=== PATIENT | female | born 1975 | race Caucasian/White ===

== ENCOUNTER 2024-02-04 05:22 | Emergency (ER) | payer MEDICAID, SELFPAY ==
[2024-02-04] VITALS (7 sets, daily range): BP systolic 109–135; BP diastolic 85–94; PULSE 90–116; RESP 16–23; TEMP 36.7; O2SAT 87–93; BMI 28.5
--- NOTE | 2024-02-04 05:42 | PD.EDRME ---
Rapid Medical Screening Exam RME Arrival date/time: 02/04/24 05:22 Chief Complaint: Shortness of Breath/Dyspnea Time Seen by Provider: 02/04/24 05:42 Vital signs: Vital Signs Temperature 98.1 F 02/04/24 05:29 Pulse Rate 116 H 02/04/24 05:29 Respiratory Rate 23 H 02/04/24 05:29 Blood Pressure 117/85 H 02/04/24 05:29 Pulse Oximetry (%) 87 L 02/04/24 05:29 Oxygen Delivery Method Room Air 02/04/24 05:29 RME Narrative: 48-year-old female coming in with COPD exacerbation and inhalers at home coming in with wheezing after change in weather. Patient was given DuoNebs en route by EMS and feels significantly better. No chest pain
--- NOTE | 2024-02-04 07:54 | XR_ITS ---
Examination: AP chest single view TECHNIQUE: AP portable upright chest single view Exam date and time: January 27, 2024 0802 hours Comparison June 18, 2023 INDICATIONS: Chest pain today FINDINGS: Normal heart size. Lungs are clear. Left subclavian Port-A-Cath tip satisfactory position IMPRESSION: No pneumonia or pulmonary edema
[2024-02-04] MEDS: METOCLOPRAMIDE INJ 5 MG/ML VIAL 2 ML 10 MG IVP (08:16)
[2024-02-04] MEDS: MORPHINE SULF INJ 10 MG/ML VIAL 5 MG IVP (08:17)
--- NOTE | 2024-02-04 08:21 | EDNOTE_ITS ---
ED SOB =RME/HPI General Chief Complaint: Shortness of Breath/Dyspnea Stated Complaint: SOB Time Seen by Provider: 02/04/24 05:42 Arrival date/time: 02/04/24 05:22 RME / HPI RME / HPI Narrative: 48-year-old female coming in with COPD exacerbation and inhalers at home coming in with wheezing after change in weather. Patient was given DuoNebs en route by EMS and feels significantly better. No chest pain DR HUGHES MAIN ED EVALUATION: 48-year-old female patient, current everyday smoker, complaining of shortness of breath, sweats, body aches. States yesterday began a second antibiotic for cellulitis of the abdominal wall. Related Data Home Medications ?Medication ?Instructions ?Recorded ?Confirmed atorvastatin 10 mg tablet 10 mg PO HS 01/20/19 08/13/23 levothyroxine 75 mcg tablet 50 mcg PO QMORNING 01/20/19 08/13/23 methocarbamol 750 mg tablet 750 mg PO BID 01/20/19 08/13/23 pantoprazole 40 mg tablet,delayed 40 mg PO QDAY 01/20/19 08/13/23 release folic acid 1 mg tablet 1 mg PO HS 12/19/19 08/13/23 lorazepam 1 mg tablet 1 mg PO Q8H PRN Anxiety 12/19/19 08/13/23 acetaminophen 300 mg-codeine 60 mg 0.5 tab PO Q6H PRN Pain 08/12/20 08/13/23 tablet metoprolol tartrate 50 mg tablet 100 mg PO BID 11/03/20 08/14/23 prednisone 1 mg tablet 5 mg PO BID PRN Arthritis 03/21/21 08/13/23 leflunomide 20 mg tablet 20 mg PO QDAY 05/10/22 08/13/23 fenofibrate 54 mg tablet 54 mg PO QDAY 10/25/22 08/13/23 cetirizine 10 mg tablet 10 mg PO QDAY 11/13/22 08/13/23 hydrocodone bitartrate 10 mg 10 mg PO Q12H 11/13/22 08/13/23 capsule, oral only, extended rel 12 hr quetiapine 300 mg tablet 300 mg PO BID 11/13/22 08/13/23 duloxetine 30 mg capsule,delayed 30 mg PO QPM 12/18/22 08/13/23 release (Cymbalta) duloxetine 60 mg capsule,delayed 60 mg PO QAM 12/18/22 08/13/23 release (Cymbalta) promethazine 25 mg tablet 25 mg PO BID 12/18/22 08/13/23 tocilizumab 200 mg/10 mL (20 1 mg IV QMONTH 12/18/22 08/13/23 mg/mL) intravenous solution benzonatate 100 mg capsule 100 mg PO TID 05/25/23 08/13/23 fezolinetant 45 mg tablet (Veozah) 45 mg PO QDAY 05/25/23 08/13/23 amoxicillin 500 mg capsule 500 mg PO Q8H 08/13/23 08/13/23 Previous Rx's ?Medication ?Instructions ?Recorded oxycodone-acetaminophen 5 mg-325 1 tab PO Q8H PRN pain #7 tabs 02/17/23 mg tablet (Percocet) dexamethasone 6 mg tablet 6 mg PO QDAY #10 tabs 02/21/23 cyclobenzaprine 10 mg tablet 10 mg PO HS #10 tabs 06/18/23 meloxicam 7.5 mg tablet 7.5 mg PO QDAY #10 tabs 06/18/23 Allergies Allergy/AdvReac Type Severity Reaction Status Date / Time infliximab [From Remicade] Allergy Severe Difficulty Verified 08/14/23 07:09 Breathing ondansetron AdvReac Severe SEVERE Verified 08/14/23 07:09 MIGRAINE tramadol AdvReac Severe ALTERS Verified 08/14/23 07:09 MOOD, CAUSES ANGER AND IRRITATION Review of Systems Review of Systems Narrative Review of Systems: Gen:+sweating. body ache. No fever, no chills, no weight loss EYES: No discharge, no visual changes, no pain HEENT: No ear pain, no congestion, no sore throat PULM: + shortness of breath, no cough, no congestion CV: No chest pain, no dyspnea on exertion, no palpitations GI: No nausea, no vomiting, no diarrhea, no pain, no constipation : No frequency, no urgency, no dysuria Musc/skel: No joint pain, no back pain Skin: No rash Psyc: No hallucinations, no depression Heme/Lymph: No easy bleeding or bruising tendencies Neuro: No weakness, no headache Past Medical History Past Medical History NEUROLOGIC: Positive Neurological Disorders and Migraine; Negative Seizures CARDIAC: Positive Cardiac Disorders, Cardiac Arrhythmia, Hypercholesterolemia, Edema and Hypertension; Negative Angina, Congestive Heart Failure, Cellulitis or Varicose Veins RESPIRATORY: Positive Chronic Obstructive Pulmonary Disease (COPD), Asthma, Bronchitis, Pneumonia, Cough and Tobacco Use; Negative Tuberculosis or Sleep Apnea GASTROINTESTINAL: Positive Gastrointestinal Disorders, Pancreatitis, Ulcer, Irritable Bowel, Hiatal Hernia, Gastroesophageal Reflux Disease and Obesity; Negative Hepatitis or Gall Bladder Disease GENITOURINARY: Positive Genitourinary Disorders; Negative Renal Disease REPRODUCTIVE: Positive Previous Pregnancies; Negative Breast Cancer or Pelvic Inflammatory Disease MUSCULOSKELETAL: Positive Musculoskeletal Disorders, Arthritis, Rheumatoid Arthritis, Scoliosis, Carpal Tunnel Syndrome, Fibromyalgia and Fractures ENDOCRINE: Positive Endocrine Disorders, Diabetes Mellitus Type 2, Hyperthyroidism, Hypothyroidism and Systemic Lupus Erythematosus; Negative Diabetes Mellitus Type 1 HEMATOLOGIC: Negative Blood Disorders or Sickle Cell Disease PSYCHO/SOCIAL: Positive Depression, Anxiety and Post Traumatic Stress Disorder; Negative Depression OTHER HISTORY: Positive Hospitalization, Autoimmune Disease, Falls and Chicken Pox; Negative Down Syndrome, Developmental Delay, Shingles, Blood Transfusions, Blood Transfusion Reaction, Anesthesia Reactions, Chemotherapy, Radiation Therapy, MRSA, Measles, Mumps, Cancer or Breast Cancer Family History FAMILY HISTORY: Positive Family Psychiatric Problems, Family Respiratory Disorders, Family Cardiac Disorders, Family Cancer and Family Surgery; Negative Family Gastrointestinal Problems or Family Anesthesia Reaction Surgical History SURGICAL: Positive Thyroidectomy (breach), Nose Surgery (septum), Tonsillectomy, Abdominal Surgery, Bowel Surgery, Lumpectomy (right), Hysterectomy and Tubal Lig ation; Negative Cardiac Surgery, Pacemaker or Angiogram Social History SMOKING STATUS: Current some day smoker SECOND HAND EXPOSURE: Yes SUBSTANCE USE: does not use ED Exam Narrative Physical exam: GENERAL APPEARANCE: alert and oriented x 4, well-developed, well-nourished, no acute distress HEENT: Normocephalic, atraumatic; pupils equal, round, reactive to light; EOMI; mucous membranes pink, moist; oropharynx clear NECK: Supple LUNGS: coarse upper airway noise on osculations of chest, good air movement. HEART: Regular rate, regular rhythm; normal S1, S2; no murmurs ABDOMEN: non distended; normal BS; soft, no tenderness, no guarding, no rebound; no masses, no organomegaly, no hernia BACK: no CVA tenderness EXTREMITIES: atraumatic; no edema NEUROLOGIC: awake; alert and oriented x4; cranial nerves II-XII grossly intact; no focal sensory or motor deficits PSYCHIATRIC: appropriate mood and affect SKIN: warm, dry, normal color; no rashes Course Quality Measures none Orders Category Date Time Status Bedside COVID-19 Antigen Test NOW Care 02/04/24 07:54 Completed Bedside Influenza A&B Antigen Test NOW Care 02/04/24 07:54 Completed 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 NOW Care 02/04/24 07:54 Completed EKG (ED ONLY) *Do not use* NOW Care 02/04/24 07:54 Completed EKG (ED Only) Stat Exams 02/04/24 07:54 Ordered XR chest 1V portable Stat Exams 02/04/24 07:54 Completed B-Type Natriuretic Peptide Stat Lab 02/04/24 08:24 Completed Blood Culture (Lab) Stat Lab 02/04/24 08:43 Received CBC Stat Lab 02/04/24 08:24 Completed Comprehensive Metabolic Panel Stat Lab 02/04/24 08:24 Completed Lactate (Lactic Acid) Stat Lab 02/04/24 08:24 Completed Lactic Acid, 3 HR Stat Lab 02/04/24 11:49 Completed Lipase Stat Lab 02/04/24 08:24 Completed Magnesium Stat Lab 02/04/24 08:24 Completed Partial Thromboplastin Time Stat Lab 02/04/24 08:24 Completed Procalcitonin Stat Lab 02/04/24 08:24 Completed Prothrombin Time with INR Stat Lab 02/04/24 08:24 Completed Troponin I Stat Lab 02/04/24 08:24 Completed Urinalysis Stat Lab 02/04/24 08:30 Completed Urine Culture Stat Lab 02/04/24 08:30 Received HYDROcodone*/APAP 5/325 [[place] 5/325] Med 02/04/24 13:06 Discontinued 1 tab PO X1 ONE Ketorolac Inj [Toradol Inj] Med 02/04/24 11:40 Discontinued 15 mg IVP X1 ONE Metoclopramide Inj [Reglan Inj] Med 02/04/24 07:54 Discontinued 10 mg IVP X1 ONE Morphine Inj Med 02/04/24 07:54 Discontinued 5 mg IVP X1 ONE Promethazine Inj [Phenergan Inj] 12.5 mg Med 02/04/24 11:41 Discontinued Sodium Chloride 0.9% [Ns] 50 ml IV Q6HR Sodium Chloride 0.9% 1000 ml [Ns] 1,000 ml Med 02/04/24 10:43 Discontinued IV 999 mls/hr Sodium Chloride 0.9% 1000 ml [Ns] 1,000 ml Med 02/04/24 10:43 Discontinued IV 999 mls/hr Vital Signs Vital signs: Vital Signs Temperature 98.1 F 02/04/24 05:29 Pulse Rate 116 H 02/04/24 05:29 Respiratory Rate 23 H 02/04/24 05:29 Blood Pressure 117/85 H 02/04/24 05:29 Pulse Oximetry (%) 87 L 02/04/24 05:29 Oxygen Delivery Method Room Air 02/04/24 05:29 Shortness of Breath / Dyspnea MDM Narrative MDM Narrative:: Past medical, family and social history reviewed and verified by me. The quality assurance monitor chassis revealed normal sinus rhythm as interpreted by me. The quality assurance monitor chassis was ordered secondary to the patient's shortness of breath and is monitoring for arrhythmia. Chest xray 1-view portable AP interpreted by me: no evidence of infiltrate, cardiomegaly, pleural effusion or bone fracture. The aorta appears to be of normal size and contour and the mediastinum is within the normal limits of size. Patient data External records reviewed:: [facility] previous records Clinical information provided by:: patient Social determinants that could affect healthcare access:: none Patient has the following chronic illnesses:: hypertension, diabetes How is presenting disease/condition affected by chronic disease/condition?: uneffected by Evaluation data The following diagnostics were reviewed and interpreted by me:: lab results, radiology exam(s) and EKG tracing(s) (Sinus tachycardia, Rate 108, normal axis, normal ST and T waves, no acute ischemic changes. ) Lab and/or radiology exams considered but not ordered:: none Interpretation Summary: Ordering Physician: Rosemarie Hughes MD Date of Service: 02/04/24 Procedure(s): XR chest 1V portable Accession Number(s): [id number] cc: Michelle Malcolm; Malcolm Tirado MD; Rosemarie Hughes MD~ Examination: AP chest single view TECHNIQUE: AP portable upright chest single view Exam date and time: January 27, 2024 0802 hours Comparison June 18, 2023 INDICATIONS: Chest pain today FINDINGS: Normal heart size. Lungs are clear. Left subclavian Port-A-Cath tip satisfactory position IMPRESSION: No pneumonia or pulmonary edema Dictated By: Malcolm Tirado MD Signed By: <Electronically signed by Malcolm Tirado MD in OV> 02/04/24 0932 Medications / Prescriptions Medications or Prescriptions considered but not ordered:: none Medication administrations:: Medication Administration History Discontinued Medications Hydrocodone Bitart/Acetaminophen (Hydrocodone/Apap 5/325 Tablet) 1 tab PO X1 ONE Stop: 02/04/24 13:07 Last Admin: 02/04/24 13:11 Dose: 1 tab Documented By: VI Sodium Chloride (Ns) 1,000 mls @ 999 mls/hr IV .Q1H1M ONE Stop: 02/04/24 11:43 Last Infusion: 02/04/24 12:15 Dose: Infused Documented By: Admin: 02/04/24 10:48 Dose: 999 mls/hr Documented By: SOPHIE Sodium Chloride (Ns) 1,000 mls @ 999 mls/hr IV .Q1H1M ONE Stop: 02/04/24 11:43 Last Infusion: 02/04/24 13:39 Dose: Infused Documented By: Admin: 02/04/24 10:48 Dose: 999 mls/hr Documented By: SOPHIE Promethazine HCl 12.5 mg/ (Sodium Chloride) 50.5 mls @ 2.5 mls/min IV Q6HR PRN PRN Reason: NAUSEA OR VOMITING Stop: 03/05/24 11:40 Last Infusion: 02/04/24 12:15 Dose: Infused Documented By: Admin: 02/04/24 11:52 Dose: 2.5 mls/min Documented By: SOPHIE Ketorolac Tromethamine (Ketorolac Inj 30 Mg/Ml Vial) 15 mg IVP X1 ONE Stop: 02/04/24 11:41 Last Admin: 02/04/24 11:52 Dose: 15 mg Documented By: SOPHIE Metoclopramide HCl (Metoclopramide Inj 5 Mg/Ml Vial 2 Ml) 10 mg IVP X1 ONE; Protocol Stop: 02/04/24 07:55 Last Admin: 02/04/24 08:16 Dose: 10 mg Documented By: SOPHIE Morphine Sulfate (Morphine Sulf Inj 10 Mg/Ml Vial) 5 mg IVP X1 ONE Stop: 02/04/24 07:55 Last Admin: 02/04/24 08:17 Dose: 5 mg Documented By: SOPHIE see above Consultations Consultation(s) initiated? (list below): No Diagnosis Shortness of Breath Differential Diagnosis: other (COPD exacerbation, pneumonia, bronchitis, anxiety. ) Most likely diagnosis given after review of the tests above:: dyspnea, body aches, COPD Admission Indicated Admission indicated?: not indicated Admission Request Was there a request for admission?: No Disposition Plan Disposition Plan: Discharge Discharge Attestation Discharge Attestation: The patient and all family members were given an opportunity to ask questions and understood the discharge instructions. Discharge instructions specifically effects, indications for sooner follow up or return to the emergency department, and the expected course of current diagnosis. Patient condition: Stable Discharge Plan Plan Patient Disposition: HOME (Self Care) Patient condition on transfer: Stable Prescriptions/Referrals Prescriptions/Med Rec: No Action hydrocodone bitartrate 10 mg capsule, oral only, ER 12hr 10 mg PO Q12H cetirizine 10 mg tablet 10 mg PO QDAY quetiapine 300 mg tablet 300 mg PO BID folic acid 1 mg Tablet 1 mg PO HS lorazepam 1 mg Tablet 1 mg PO Q8H PRN (Reason: Anxiety) Hold Instructions: Resume on 05/12/22. acetaminophen-codeine 300-60 mg Tablet 0.5 tab PO Q6H PRN (Reason: Pain) atorvastatin 10 mg Tablet 10 mg PO HS levothyroxine 75 mcg Tablet 50 mcg PO QMORNING methocarbamol 750 mg Tablet 750 mg PO BID pantoprazole 40 mg Tablet,Delayed Release (Dr/Ec) 40 mg PO QDAY metoprolol tartrate 50 mg tablet 100 mg PO BID prednisone 1 mg Tablet 5 mg PO BID PRN (Reason: Arthritis) leflunomide 20 mg tablet 20 mg PO QDAY Patient Comments: TAKE ONE TABLET BY MOUTH EVERY DAY RHEUMATOID ARTHRITIS oxycodone-acetaminophen [Percocet] 5-325 mg tablet 1 tab PO Q8H MDD 4 PRN (Reason: pain) Qty: 7 0RF dexamethasone 6 mg tablet 6 mg PO QDAY Qty: 10 0RF amoxicillin 500 mg Capsule 500 mg PO Q8H fenofibrate 54 mg tablet 54 mg PO QDAY Patient Comments: TAKE ONE TABLET BY MOUTH EVERY DAY FOR CHOLESTEROL promethazine 25 mg Tablet 25 mg PO BID duloxetine [Cymbalta] 30 mg Capsule,Delayed Release(Dr/Ec) 30 mg PO QPM duloxetine [Cymbalta] 60 mg Capsule,Delayed Release(Dr/Ec) 60 mg PO QAM tocilizumab 200 mg/10 mL (20 mg/mL) Solution 1 mg IV QMONTH Veozah 45 mg Tablet 45 mg PO QDAY benzonatate 100 mg Capsule 100 mg PO TID cyclobenzaprine 10 mg tablet 10 mg PO HS Qty: 10 0RF meloxicam 7.5 mg tablet 7.5 mg PO QDAY Qty: 10 0RF Referrals: Michelle Malcolm FNP [Primary Care Provider] - In 1 week Problem List Clinical Impression: Dyspnea, Body aches, COPD (chronic obstructive pulmonary disease) Patient/Caregiver Discharge Instructions Education Materials: COPD: Wheezing and Chest Tightness, ED How to Quit Smoking Print Language: Malay Stand Alone Forms: Valerie Award Info., Patient Portal Info Letter
[2024-02-04 08:39] LABS: Collection Type, Urine Clean Catch
[2024-02-04 08:41] LABS: Lactate (Lactic Acid) 2.8 mMol/L (0.4-2.0)
[2024-02-04 08:45] LABS: Basophils # (Auto) 0.1 Thou/mm3 (0.0-0.2); Basophils % (Auto) 1 % (0-2.5); Eosinophils # (Auto) 0.3 Thou/mm3 (0.0-0.5); Eosinophils % (Auto) 2 % (0-10); Hematocrit 47.6 % (36.0-46.0); Hemoglobin 14.9 g/dL (12.0-16.0); Immature Granulocytes % (Auto) 0 % (0-0); Immature Granulocytes Auto 0.05 Thou/mm3 (0.00-0.00); Lymphocytes # (Auto) 3.9 Thou/mm3 (1.0-4.8); Lymphocytes % (Auto) 29 % (10-50); Mean Corpuscular HGB Conc 31.3 g/dl (31.0-37.0); Mean Corpuscular Hemoglobin 30.2 pg (25.0-35.0); Mean Corpuscular Volume 97 fL (80-100); Monocytes % (Auto) 7 % (0-12); Neutrophils # (Auto) 8.3 Thou/mm3 (1.8-7.7); Neutrophils % (Auto) 61 % (37-80); Nucleated Red Blood Cell % 0 /100 WBC (0); Platelet Count 157 Thou/mm3 (140-440); RDW Standard Deviation 47.8 fL (36.4-46.3); Red Blood Count 4.93 Miln/mm3 (4.00-5.20); White Blood Count 13.6 Thou/mm3 (3.6-11.0)
[2024-02-04 08:55] LABS: Bilirubin,Urine Negative (Negative); Blood,Urine Negative (Negative); Clarity,Urine Clear (Clear/Hazy); Color,Urine Lt-Yellow (Lt Yel-Yel); Glucose, Urine Negative (Negative); Ketones,Urine Negative (Negative); Leukocyte Esterase,Urine Negative (Negative); Nitrite,Urine Negative (Negative); PH,Urine 5.5 (5.0-7.0); Protein,Urine Negative (Neg - Trace); RBC,Urine 3 /hpf (0-3); Specific Gravity,Urine 1.018 (1.001-1.035); Squamous Epithelial Cell,Urine 7 /hpf (0-5); Urobilinogen,Urine Negative mg/dL (0.0-1.0); WBC,Urine 1 /hpf (0-5)
[2024-02-04 09:09] LABS: B-Type Natriuretic Peptide < 20 pg/mL (0-100)
[2024-02-04 09:12] LABS: INR 1.1 (0.9-1.3); Partial Thromboplastin Time 27.5 Seconds (22.0-36.0); Prothrombin Time 11.6 Seconds (9.0-12.2)
[2024-02-04 09:23] LABS: Alanine Aminotransferase 28 U/L (10-49); Albumin, Serum 4.7 gm/dL (3.5-5.0); Albumin/Globulin Ratio 2.1 (1.2-2.2); Alkaline Phosphatase 81 U/L (46-116); Anion Gap 6 (7-16); Aspartate Amino Transferase 32 U/L (0-34); BUN/Creatinine Ratio 13 Ratio (12-20); Bilirubin,Total 0.3 mg/dL (0.3-1.2); Blood Urea Nitrogen 8 mg/dL (9-23); Calcium 9.4 mg/dL (8.3-10.6); Calcium (Corrected) 9.4 mg/dL (8.5-10.1); Chloride 107 mMol/L (98-107); Creatinine (Component) 0.6 mg/dL (0.6-1.3); Estimated Creatinine Clearance 109.8 mL/min (>60); Globulin 2.2 gm/dL (2.3-3.5); Glucose 134 mg/dL (74-106); Lipase 38 U/L (12-53); Magnesium 1.7 mg/dL (1.6-2.6); Osmolality,Calculated 277 (275-295); Potassium 3.7 mMol/L (3.4-5.1); Procalcitonin 0.09 ng/ml (0.0-0.49); Sodium 139 mMol/L (136-145); Total Protein 6.9 gm/dL (5.7-8.2); Troponin I < 0.002 ng/mL (0.0-0.045); eGFR > 60 See Note
[2024-02-04] MEDS: SODIUM CHLORIDE 0.9% 1000 ML 1,000 ML 999 ML IV ×2 (10:48)
[2024-02-04 11:36] LABS: Reflex Lactate? Y
[2024-02-04] MEDS: KETOROLAC INJ 30 MG/ML VIAL 15 MG IVP (11:52)
[2024-02-04] MEDS: PROMETHAZINE INJ 12.5 MG in SODIUM CHLORIDE 0.9% 50 ML 2.5 MG IV (11:52)
[2024-02-04 11:55] LABS: Lactic Acid, 3 HR 1.3 mMol/L (0.4-2.0)
[2024-02-04] MEDS: HYDROcodone/APAP 5/325 TABLET 1 TAB PO (13:11)
== END 2024-02-04 13:45 | disposition home or self-care (01) ==
PROVIDERS: Emergency Provider Emergency Medicine; PCP Nurse Practitioner Family
DX: J44.9 Chronic obstructive pulmonary disease, unspecified (principal); R07.9 Chest pain, unspecified; R00.0 Tachycardia, unspecified; F17.210 Nicotine dependence, cigarettes, uncomplicated; E78.00 Pure hypercholesterolemia, unspecified; I10 Essential (primary) hypertension
CPT/HCPCS: 36415; 71045; 80053; 81001; 83605; 83690; 83735; 83880; 84145; 84484; 85025; 85610; 85730; 87040; 87086; 87400; 87811; 93005; 96361; 96374; 96375; 99284; J1885; J2270; J2550; J2765; J7030; A9270

== ENCOUNTER → 2024-03-20 | Outpatient (CLI) | payer MEDICAID, SELFPAY ==
--- NOTE | 2024-03-20 10:15 | XR_ITS ---
Examination: Screening digital mammography, bilateral Computer aided detection 3-D breast Tomosynthesis, bilateral Date and time of exam: March 20, 2024 0942 hours Compared to mammograms dating to January 08, 2023 Indication: Screening Technique: Nonmagnified MLO, CC views of the breasts to been obtained, reconstructed from 3-D Tomosynthesis images. R2 computer aided detection program utilized for evaluation of suspicious masses and/or abnormal calcifications. 3-D Tomosynthesis images obtained. Findings: The breasts are heterogeneously dense, which may obscure small masses 8 mm focal asymmetry upper right upper right breast anterior depth Benign calcifications Breast biopsy marker upper outer left breast Impression: BI-RADS Category 0: Incomplete: Need additional imaging evaluation 8 mm focal asymmetry upper right breast anterior depth, recommend follow-up spot tomographic views of this asymmetry as well as right breast sonography to complete the workup
== END | disposition home or self-care (01) ==
LOC: CDIM 09:28
PROVIDERS: Referring Provider Nurse Practitioner Family; Visit Provider Nurse Practitioner Family
DX: Z12.31 Encounter for screening mammogram for malignant neoplasm of breast (principal); R92.8 Other abnormal and inconclusive findings on diagnostic imaging of breast; N64.89 Other specified disorders of breast
CPT/HCPCS: 77063; 77067

== ENCOUNTER 2024-07-13 07:18 | Emergency (ER) | payer MEDICAID, SELFPAY ==
[2024-07-13 07:32] VITALS: BP 130/85; PULSE 104; RESP 22; TEMP 36.7; O2SAT 91; BMI 29.0
--- NOTE | 2024-07-13 07:39 | XR_ITS ---
Examination: PA lateral chest 2 views TECHNIQUE: Upright PA and lateral chest 2 views Standing time: July 13, 2024 0801 hours Comparison February 04, 2024 INDICATION: Fever beginning 4 days ago. FINDINGS: Normal heart size. Lungs are clear. Left subclavian Port-A-Cath tip SVC satisfactory position IMPRESSION: No pneumonia identified
--- NOTE | 2024-07-13 07:42 | PD.EDNV ---
Nausea/Vomit./Diarrhea-RME/HPI General Chief complaint: Nausea/Vomiting/Diarrhea Stated complaint: VOMITING AND DIARRHEA Time Seen by Provider: 07/13/24 07:23 Source: patient Arrival date/time: 07/13/24 07:18 49-year-old female with a history of COPD, hyperlipidemia, appendectomy, cholecystectomy, presents to the emergency room with a chief complaint of diarrhea and vomiting x 4 days. Mode of arrival: ambulatory Limitations: no limitations Related Data Home Medications ?Medication ?Instructions ?Recorded ?Confirmed atorvastatin 10 mg tablet 10 mg PO HS 01/20/19 08/13/23 levothyroxine 75 mcg tablet 50 mcg PO QMORNING 01/20/19 08/13/23 methocarbamol 750 mg tablet 750 mg PO BID 01/20/19 08/13/23 pantoprazole 40 mg tablet,delayed 40 mg PO QDAY 01/20/19 08/13/23 release folic acid 1 mg tablet 1 mg PO HS 12/19/19 08/13/23 lorazepam 1 mg tablet 1 mg PO Q8H PRN Anxiety 12/19/19 08/13/23 acetaminophen 300 mg-codeine 60 mg 0.5 tab PO Q6H PRN Pain 08/12/20 08/13/23 tablet metoprolol tartrate 50 mg tablet 100 mg PO BID 11/03/20 08/14/23 prednisone 1 mg tablet 5 mg PO BID PRN Arthritis 03/21/21 08/13/23 leflunomide 20 mg tablet 20 mg PO QDAY 05/10/22 08/13/23 fenofibrate 54 mg tablet 54 mg PO QDAY 10/25/22 08/13/23 cetirizine 10 mg tablet 10 mg PO QDAY 11/13/22 08/13/23 hydrocodone bitartrate 10 mg 10 mg PO Q12H 11/13/22 08/13/23 capsule, oral only, extended rel 12 hr quetiapine 300 mg tablet 300 mg PO BID 11/13/22 08/13/23 duloxetine 30 mg capsule,delayed 30 mg PO QPM 12/18/22 08/13/23 release (Cymbalta) duloxetine 60 mg capsule,delayed 60 mg PO QAM 12/18/22 08/13/23 release (Cymbalta) promethazine 25 mg tablet 25 mg PO BID 12/18/22 08/13/23 tocilizumab 200 mg/10 mL (20 1 mg IV QMONTH 12/18/22 08/13/23 mg/mL) intravenous solution benzonatate 100 mg capsule 100 mg PO TID 05/25/23 08/13/23 fezolinetant 45 mg tablet (Veozah) 45 mg PO QDAY 05/25/23 08/13/23 amoxicillin 500 mg capsule 500 mg PO Q8H 08/13/23 08/13/23 Previous Rx's ?Medication ?Instructions ?Recorded oxycodone-acetaminophen 5 mg-325 1 tab PO Q8H PRN pain #7 tabs 02/17/23 mg tablet (Percocet) dexamethasone 6 mg tablet 6 mg PO QDAY #10 tabs 02/21/23 cyclobenzaprine 10 mg tablet 10 mg PO HS #10 tabs 06/18/23 meloxicam 7.5 mg tablet 7.5 mg PO QDAY #10 tabs 06/18/23 nitrofurantoin 100 mg PO Q12H 5 days #10 caps 07/13/24 monohydrate/macrocrystals 100 mg capsule (Macrobid) Allergies Allergy/AdvReac Type Severity Reaction Status Date / Time inflix[facility] ([facility] Allergy Severe Difficulty Verified 07/13/24 07:22 Breathing ondansetron AdvReac Severe SEVERE Verified 07/13/24 07:22 MIGRAINE tramadol AdvReac Severe ALTERS Verified 07/13/24 07:22 MOOD, CAUSES ANGER AND IRRITATION Review of Systems Review of Systems Systems Reviewed: All systems reviewed, normal except as documented Constitutional Constitutional: Reports system reviewed and no additional complaints, except as documented, Denies fatigue, Denies fever(s), Denies headache(s) and Denies weakness Eyes Eyes: Reports system reviewed and no additional complaints, except as documented, Denies blurry vision and Denies change in vision ENT Ears, Nose, Mouth, and Throat: Reports system reviewed and no additional complaints, except as documented, Denies otalgia, Denies headache(s), Denies nasal congestion, Denies throat swelling and Denies vertigo Cardiovascular Cardiovascular: Reports system reviewed and no additional complaints, except as documented, Denies chest pain, Denies dyspnea and Denies dyspnea on exertion Respiratory Respiratory: Reports system reviewed and no additional complaints, except as documented, Denies chest congestion, Denies cough, Denies dyspnea, Denies dyspnea on exertion and Denies wheezing Gastrointestinal Gastrointestinal: Reports system reviewed and no additional complaints, except as documented, Denies abdominal pain, Denies cramping, Denies nausea and Denies vomiting Genitourinary Genitourinary: Reports system reviewed and no additional complaints, except as documented Musculoskeletal Musculoskeletal: Reports system reviewed and no additional complaints, except as documented and Denies back pain Integumentary/Breasts Skin/Breast: Reports system reviewed and no additional complaints, except as documented and Denies wounds Neurologic Neurologic: Reports system reviewed and no additional complaints, except as documented, Denies confusion, Denies headache(s), Denies lack of coordination, Denies vertigo and Denies weakness Psychiatric Psychiatric: Reports system reviewed and no additional complaints, except as documented, Denies anxiety, Denies confusion, Denies depression, Denies paranoia, Denies suicidal ideation and Denies tactile hallucinations Endocrine Endocrine: Reports system reviewed and no additional complaints, except as documented and Denies fatigue Hematologic/Lymphatic Hematologic/Lymphatic: Reports system reviewed and no additional complaints, except as documented and Denies lymphadenopathy Allergic/Immunologic Allergic/Immunologic: Reports system reviewed and no additional complaints, except as documented, Denies throat swelling, Denies urticaria and Denies wheezing ED Exam General Limitations: Present no limitations General appearance: Present alert and in no apparent distress Head Head exam: Present atraumatic Eye Eye exam: Present normal appearance, PERRL and EOMI ENT ENT exam: Present normal exam, normal oropharynx and mucous membranes moist Neck Neck exam: Present normal inspection, full ROM and trachea midline Chest Chest inspection: Present normal inspection and symmetric chest wall rise Respiratory Respiratory exam: Present normal lung sounds bilaterally Cardiovascular Cardiovascular exam: Present regular rate, normal rhythm and normal heart sounds Abdominal Exam Abdominal exam: Present soft, tenderness and normal bowel sounds; Absent distention, guarding, rebound or rigidity Abdominal tenderness: Present RUQ and mild Extremities Exam Extremities exam: Present normal inspection and full ROM Back Exam Back exam: Present normal inspection and full ROM Neurological Exam Neurological exam: Present alert, oriented X3 and CN II-XII intact Psychiatric Psychiatric exam: Present normal affect and normal mood Skin Skin exam: Present warm, dry, intact and normal color Course Quality Measures none Orders Category Date Time Status Bedside COVID-19 Antigen Test NOW Care 07/13/24 07:39 Active Bedside Influenza A&B Antigen Test NOW Care 07/13/24 07:39 Completed XR chest 2V Stat Exams 07/13/24 07:39 Completed CBC Stat Lab 07/13/24 08:29 Completed CMP [Comprehensive Metabolic Panel] Stat Lab 07/13/24 08:29 Completed Lipase Stat Lab 07/13/24 08:29 Completed UA, C/S IF [Urinalysis, C/S if Indicated] Stat Lab 07/13/24 07:52 Completed Ketorolac Inj [Toradol Inj] Med 07/13/24 07:39 Discontinued 30 mg IM X1 ONE Metoclopramide Inj [Reglan Inj] Med 07/13/24 07:41 Discontinued 10 mg IM X1 ONE Vital Signs Vital signs: Vital Signs Temperature 98.1 F 07/13/24 07:32 Pulse Rate 104 H 07/13/24 07:32 Respiratory Rate 22 H 07/13/24 07:32 Blood Pressure 130/85 H 07/13/24 07:32 Pulse Oximetry (%) 91 L 07/13/24 07:32 Oxygen Delivery Method Room Air 07/13/24 07:32 O2 saturation 91% Nausea/Vomiting/Diarrhea MDM Narrative MDM Narrative:: 49-year-old female with a history of COPD, hyperlipidemia, appendectomy, cholecystectomy, presents to the emergency room with a chief complaint of diarrhea and vomiting x 4 days. Patient is hemodynamically stable and in no apparent distress. Patient is not tachycardic not tachypneic and afebrile. Her O2 saturation is 94% which is normal for her due to her COPD Physical examination shows tenderness to the patient's lumbar spine. The patient denies any tenderness to the right upper quadrant or left upper quadrant of her abdomen. Patient states she is also her 4 days of diarrhea. Urinalysis showed a urinary tract infection antibiotics were sent to patient's pharmacy I spoke to my attending physician Dr. Christie due to her elevated lipase and history of pancreatitis. Stated that due to the patient's vomiting this will be increased and careful monitoring and strict return precautions were given to the patient. Patient was discharged and educated to follow-up with primary care provider in the next 24 to 48 hours and return to the emergency room for any evidence of worsening signs or symptoms Patient data External records reviewed:: [facility] previous records Clinical information provided by:: patient Social determinants that could affect healthcare access:: none Patient has the following chronic illnesses:: Hypertension, hyperlipidemia, COPD How is presenting disease/condition affected by chronic disease/condition?: caused by Evaluation data The following diagnostics were reviewed and interpreted by me:: lab results Lab and/or radiology exams considered but not ordered:: Labs and radiology exams considered and ordered Interpretation Summary: Chest x-ray-no pneumonic infiltrates Medications / Prescriptions Medications / Prescriptions considered but not ordered:: Medication given Medication administrations:: Medication Administration History Discontinued Medications Ketorolac Tromethamine (Ketorolac Inj 60 Mg/2 Ml Vial) 30 mg IM X1 ONE Stop: 07/13/24 07:40 Last Admin: 07/13/24 07:57 Dose: 30 mg Documented By: GM Metoclopramide HCl (Metoclopramide Inj 5 Mg/Ml Vial 2 Ml) 10 mg IM X1 ONE; Protocol Stop: 07/13/24 07:42 Last Admin: 07/13/24 07:57 Dose: 10 mg Documented By: GM Medication given Consultations Consultation(s) initiated? (list below): No Diagnosis Nausea Differential Diagnosis: traveler's diarrhea, food poisoning, gastroenteritis, dehydration and other (Influenza/community-acquired pneumonia/urinary tract infection) Most likely diagnosis given after review of the tests above:: Urinary tract infection Admission Indicated Admission indicated?: not indicated Admission Request Was there a request for admission?: No Disposition Plan Disposition Plan: Discharge Discharge Attestation Discharge Attestation: The patient and all family members were given an opportunity to ask questions and understood the discharge instructions. Discharge instructions specifically effects, indications for sooner follow up or return to the emergency department, and the expected course of current diagnosis. Patient condition: Stable Discharge Plan Plan Patient Disposition: HOME (Self Care) Disposition Comment: Stable Prescriptions/Referrals Prescriptions/Med Rec: New nitrofurantoin monohyd/m-cryst [Macrobid] 100 mg capsule 100 mg PO Q12H 5 Days Qty: 10 0RF Rx Instructions: must administer with a meal/food No Action hydrocodone bitartrate 10 mg capsule, oral only, ER 12hr 10 mg PO Q12H cetirizine 10 mg tablet 10 mg PO QDAY quetiapine 300 mg tablet 300 mg PO BID folic acid 1 mg Tablet 1 mg PO HS lorazepam 1 mg Tablet 1 mg PO Q8H PRN (Reason: Anxiety) acetaminophen-codeine 300-60 mg Tablet 0.5 tab PO Q6H PRN (Reason: Pain) atorvastatin 10 mg Tablet 10 mg PO HS levothyroxine 75 mcg Tablet 50 mcg PO QMORNING methocarbamol 750 mg Tablet 750 mg PO BID pantoprazole 40 mg Tablet,Delayed Release (Dr/Ec) 40 mg PO QDAY metoprolol tartrate 50 mg tablet 100 mg PO BID prednisone 1 mg Tablet 5 mg PO BID PRN (Reason: Arthritis) leflunomide 20 mg tablet 20 mg PO QDAY Patient Comments: TAKE ONE TABLET BY MOUTH EVERY DAY RHEUMATOID ARTHRITIS oxycodone-acetaminophen [Percocet] 5-325 mg tablet 1 tab PO Q8H MDD 4 PRN (Reason: pain) Qty: 7 0RF dexamethasone 6 mg tablet 6 mg PO QDAY Qty: 10 0RF amoxicillin 500 mg Capsule 500 mg PO Q8H fenofibrate 54 mg tablet 54 mg PO QDAY Patient Comments: TAKE ONE TABLET BY MOUTH EVERY DAY FOR CHOLESTEROL promethazine 25 mg Tablet 25 mg PO BID duloxetine [Cymbalta] 30 mg Capsule,Delayed Release(Dr/Ec) 30 mg PO QPM duloxetine [Cymbalta] 60 mg Capsule,Delayed Release(Dr/Ec) 60 mg PO QAM tocilizumab 200 mg/10 mL (20 mg/mL) Solution 1 mg IV QMONTH Veozah 45 mg Tablet 45 mg PO QDAY benzonatate 100 mg Capsule 100 mg PO TID cyclobenzaprine 10 mg tablet 10 mg PO HS Qty: 10 0RF meloxicam 7.5 mg tablet 7.5 mg PO QDAY Qty: 10 0RF Referrals: Fidel Bojorquez MD [Primary Care Provider] - In 1 week Problem List Clinical Impression: Urinary tract infection, Nausea & vomiting Patient/Caregiver Discharge Instructions Education Materials: ED CYSTITIS Female Adult, ED Vomiting (Adult) Additional Instructions: Please follow-up with your primary care provider in the next 24 to 48 hours. Your urinalysis showed a urinary tract infection. Antibiotics were sent to your pharmacy please pick them up and take them as indicated. For any evidence of worsening signs or symptoms return to the emergency room immediately Print Language: Mauritian Stand Alone Forms: Valerie Award Info., Patient Portal Info Letter PA/BOOK AGENT Supervising Physician PA/BOOK AGENT Supervising Physician: Dr. Christie
[2024-07-13] MEDS: KETOROLAC INJ 60 MG/2 ML VIAL 30 MG IM (07:57)
[2024-07-13] MEDS: METOCLOPRAMIDE INJ 5 MG/ML VIAL 2 ML 10 MG IM (07:57)
[2024-07-13 08:10] LABS: Collection Type, Urine Clean Catch
[2024-07-13 08:21] LABS: Bacteria,Urine 3+; Bilirubin,Urine Negative (Negative); Blood,Urine Negative (Negative); Clarity,Urine Turbid (Clear/Hazy); Color,Urine Yellow (Lt Yel-Yel); Culture Indicated,Urine Contaminated; Glucose, Urine Negative (Negative); Ketones,Urine Negative (Negative); Leukocyte Esterase,Urine Negative (Negative); Nitrite,Urine Negative (Negative); Protein,Urine 1+ (Neg - Trace); RBC,Urine 5 /hpf (0-3); Specific Gravity,Urine 1.032 (1.001-1.035); Squamous Epithelial Cell,Urine 11 /hpf (0-5); WBC,Urine 6 /hpf (0-5)
[2024-07-13 09:07] LABS: Basophils # (Auto) 0.1 Thou/mm3 (0.0-0.2); Basophils % (Auto) 1 % (0-2.5); Eosinophils # (Auto) 0.2 Thou/mm3 (0.0-0.5); Eosinophils % (Auto) 2 % (0-10); Hematocrit 46.1 % (36.0-46.0); Hemoglobin 15.3 g/dL (12.0-16.0); Immature Granulocytes % (Auto) 0 % (0-0); Immature Granulocytes Auto 0.04 Thou/mm3 (0.00-0.00); Lymphocytes % (Auto) 18 % (10-50); Mean Corpuscular HGB Conc 33.2 g/dl (31.0-37.0); Mean Corpuscular Hemoglobin 29.8 pg (25.0-35.0); Mean Corpuscular Volume 90 fL (80-100); Monocytes # (Auto) 0.8 Thou/mm3 (0.0-0.8); Monocytes % (Auto) 8 % (0-12); Neutrophils % (Auto) 72 % (37-80); Nucleated Red Blood Cell % 0 /100 WBC (0); Platelet Count 171 Thou/mm3 (140-440); RDW Standard Deviation 45.1 fL (36.4-46.3); Red Blood Count 5.14 Miln/mm3 (4.00-5.20); White Blood Count 11.2 Thou/mm3 (3.6-11.0)
[2024-07-13 09:21] LABS: Alanine Aminotransferase 23 U/L (10-49); Albumin, Serum 4.7 gm/dL (3.5-5.0); Alkaline Phosphatase 72 U/L (46-116); Anion Gap 10 (7-16); Aspartate Amino Transferase 40 U/L (0-34); BUN/Creatinine Ratio 13 Ratio (12-20); Bilirubin,Total 0.6 mg/dL (0.3-1.2); Blood Urea Nitrogen 9 mg/dL (9-23); Calcium 9.5 mg/dL (8.3-10.6); Calcium (Corrected) 9.5 mg/dL (8.5-10.1); Carbon Dioxide 26.1 mMol/L (20.0-31.0); Chloride 105 mMol/L (98-107); Creatinine (Component) 0.7 mg/dL (0.6-1.3); Estimated Creatinine Clearance 90.4 mL/min (>60); Globulin 2.3 gm/dL (2.3-3.5); Glucose 151 mg/dL (74-106); Lipase 264 U/L (12-53); Osmolality,Calculated 282 (275-295); Potassium 3.2 mMol/L (3.4-5.1); Sodium 141 mMol/L (136-145); eGFR > 60 See Note
[2024-07-13 09:51] VITALS: BP 123/85; PULSE 91; RESP 16; TEMP 36.9; O2SAT 94
[2024-07-13] MEDS: POTASSIUM CHLORIDE 20 mEq TABCR 40 MEQ PO (10:31)
== END 2024-07-13 11:20 | disposition home or self-care (01) ==
PROVIDERS: Nurse Practitioner Family; Emergency Provider Family Medicine; PCP Student in an Organized Health Care Education/Training Program
DX: N39.0 Urinary tract infection, site not specified (principal); R11.2 Nausea with vomiting, unspecified; J44.9 Chronic obstructive pulmonary disease, unspecified; E78.5 Hyperlipidemia, unspecified
CPT/HCPCS: 36415; 71046; 80053; 81001; 83690; 85025; 87400; 87811; 96372; 99283; J1885; J2765; A9270

== ENCOUNTER → 2024-08-14 | Outpatient (CLI) | payer MEDICAID, SELFPAY ==
--- NOTE | 2024-08-14 11:00 | XR_ITS ---
Examination: Thyroid sonography complete TECHNIQUE: Grayscale sonographic images thyroid lobes Exam date and time: August 14, 2024 1112 hours Comparison July 25, 2023 INDICATIONS: Family history, mother thyroid cancer FINDINGS: Right thyroid 3.6 cm no solid nodules Left thyroid 2.9 cm no solid nodules IMPRESSION: Negative examination
--- NOTE | 2024-08-14 11:30 | XR_ITS ---
Examination: Breast ultrasound, unilateral, right Date and time of exam: August 14, 2024 1103 hours INDICATIONS: Mammogram March 20, 2024 8 mm focal asymmetry upper right breast anterior depth, family history breast cancer Technique: Real-time lisa scale ultrasonographic imaging performed right breast including all 4 quadrants as well as nipple retroareolar and axillary region. Findings: 1:00 cyst 6 x 5 mm 10:00 cyst 3 x 4 mm No solid nodules IMPRESSION: BI-RADS Category 2: Benign findings
== END | disposition home or self-care (01) ==
PROVIDERS: PCP Student in an Organized Health Care Education/Training Program; Referring Provider Student in an Organized Health Care Education/Training Program; Visit Provider Nurse Practitioner
DX: N60.01 Solitary cyst of right breast (principal); E04.9 Nontoxic goiter, unspecified
CPT/HCPCS: 76536; 76641

== ENCOUNTER → 2024-11-10 | Outpatient (CLI) | payer MEDICAID, SELFPAY ==
--- NOTE | 2024-11-10 14:19 | XR_ITS ---
Examination: Lumbar spine, 5 views Technique: Lumbar spine AP, lateral, coned lateral lower lumbar spine, bilateral obliques 5 views Exam date and time: November 10, 2024 1450 hours INDICATIONS: Low back pain beginning 2 weeks ago. FINDINGS: Thoracolumbar levoscoliosis 10 degrees No lumbar fracture Mild lumbar spondylosis No significant lumbar disc narrowing IMPRESSION: Thoracolumbar levoscoliosis 10 degrees
--- NOTE | 2024-11-10 14:19 | XR_ITS ---
Examination: Thoracic spine 3 views Technique one AP lateral coned lateral upper dorsal spine 3 views Date and time: November 10, 2024 1432 hours INDICATIONS: Upper back pain beginning 2 weeks ago. FINDINGS: Thoracic dextroscoliosis 14 degrees Thoracolumbar levoscoliosis 20 degrees No vertebral body fracture Mild diffuse thoracic disc narrowing Impression: Scoliosis as above
--- NOTE | 2024-11-10 14:19 | XR_ITS ---
EXAMINATION: Cervical spine, 5 views Technique: Cervical spine AP, AP odontoid, lateral, bilateral obliques, 5 views Exam date and time: November 10, 2024 1424 hours, comparison January 25, 2020 INDICATIONS: Neck pain beginning 2 weeks ago, FINDINGS: Moderate degenerative disc disease C6-C7 Mild anterolisthesis C4 on C5 No cervical fracture Intact odontoid Mild diffuse neural foraminal stenosis IMPRESSION: Moderate degenerative disc disease C6-C7
== END | disposition home or self-care (01) ==
LOC: CDIM 14:11
PROVIDERS: PCP Student in an Organized Health Care Education/Training Program; Referring Provider Student in an Organized Health Care Education/Training Program; Visit Provider Student in an Organized Health Care Education/Training Program
DX: M41.85 Other forms of scoliosis, thoracolumbar region (principal); M50.323 Other cervical disc degeneration at C6-C7 level; M41.84 Other forms of scoliosis, thoracic region
CPT/HCPCS: 72050; 72072; 72110

== ENCOUNTER 2025-01-28 15:46 | Emergency (ER) | payer MEDICAID, SELFPAY ==
--- NOTE | 2025-01-28 15:49 | EKG_ITS ---
[facility] Test Date: 2025-01-28 Pat Name: NILAM GONZALEZ Department: Room: - Gender: Female Grid Maker: : 1975 Requested By: Gilmer Maki (TARA) Order Number: [id number] Reading MD: Gilmer Maki (ADVERTISING SUPERVISOR) Measurements Intervals [place] Rate: 88 P: 63 GA: 149 QRS: 59 QRSD: 78 T: 75 QT: 364 QTc: 443 Interpretive Statements SINUS RHYTHM POSSIBLE LEFT ATRIAL ENLARGEMENT [-0.1mV P-WAVE IN V1/V2] Compared to ECG 05/25/2023 11:23:08 ST (T wave) deviation no longer present /store/S0/[id number]/ecg/[id number].pdf
[2025-01-28 15:56] VITALS: BP 171/107; PULSE 88; RESP 20; TEMP 36.4; O2SAT 92
--- NOTE | 2025-01-28 16:01 | PD.EDRME ---
Rapid Medical Screening Exam E Arrival date/time: 01/28/25 15:46 49-year-old female with a history of anxiety and chronic pain reports with complaints of chest pain and elevated blood pressure readings that began this morning Chief Complaint: Chest Pain Time Seen by Provider: 01/28/25 15:54 Vital signs: Vital Signs Temperature 97.5 F 01/28/25 15:56 Pulse Rate 88 01/28/25 15:56 Respiratory Rate 20 01/28/25 15:56 Blood Pressure 171/107 H 01/28/25 15:56 Pulse Oximetry (%) 92 L 01/28/25 15:56 Oxygen Delivery Method Room Air 01/28/25 15:56
[2025-01-28 16:45] LABS: Basophils # (Auto) 0.1 Thou/mm3 (0.0-0.2); Basophils % (Auto) 1 % (0-2.5); Eosinophils # (Auto) 0.4 Thou/mm3 (0.0-0.5); Eosinophils % (Auto) 4 % (0-10); Hematocrit 50.3 % (36.0-46.0); Hemoglobin 16.1 g/dL (12.0-16.0); Immature Granulocytes Auto 0.03 Thou/mm3 (0.00-0.00); Lymphocytes # (Auto) 3.6 Thou/mm3 (1.0-4.8); Lymphocytes % (Auto) 37 % (10-50); Mean Corpuscular HGB Conc 32.0 g/dl (31.0-37.0); Mean Corpuscular Hemoglobin 30.2 pg (25.0-35.0); Mean Corpuscular Volume 94 fL (80-100); Monocytes # (Auto) 0.7 Thou/mm3 (0.0-0.8); Monocytes % (Auto) 8 % (0-12); Neutrophils # (Auto) 4.9 Thou/mm3 (1.8-7.7); Neutrophils % (Auto) 50 % (37-80); Nucleated Red Blood Cell # 0.00 Thou/mm3 (0.00-0.00); Nucleated Red Blood Cell % 0 /100 WBC (0); Platelet Count 135 Thou/mm3 (140-440); RDW Standard Deviation 44.8 fL (36.4-46.3); Red Blood Count 5.33 Miln/mm3 (4.00-5.20); White Blood Count 9.7 Thou/mm3 (3.6-11.0)
[2025-01-28 16:50] LABS: HCG,Qualitative Serum Negative
[2025-01-28 17:11] LABS: Alanine Aminotransferase 17 U/L (10-49); Albumin, Serum 4.8 gm/dL (3.5-5.0); Albumin/Globulin Ratio 2.8 (1.2-2.2); Alkaline Phosphatase 70 U/L (46-116); Anion Gap 8 (7-16); Aspartate Amino Transferase 28 U/L (0-34); BUN/Creatinine Ratio 7 Ratio (12-20); Bilirubin,Total 0.4 mg/dL (0.3-1.2); Blood Urea Nitrogen 5 mg/dL (9-23); Calcium 9.2 mg/dL (8.3-10.6); Calcium (Corrected) 9.2 mg/dL (8.5-10.1); Carbon Dioxide 26.3 mMol/L (20.0-31.0); Chloride 107 mMol/L (98-107); Creatinine (Component) 0.7 mg/dL (0.6-1.3); Globulin 1.7 gm/dL (2.3-3.5); Glucose 216 mg/dL (74-106); Osmolality,Calculated 285 (275-295); Potassium 4.1 mMol/L (3.4-5.1); Sodium 141 mMol/L (136-145); Total Protein 6.5 gm/dL (5.7-8.2); Troponin I < 0.002 ng/mL (0.0-0.045); eGFR > 60 See Note
--- NOTE | 2025-01-28 17:15 | PC.NURSE ---
Pt. wants something for anxiety.
--- NOTE | 2025-01-28 18:44 | EDNOTE_ITS ---
ED Chest Pain RME/HPI General Chief Complaint: Chest Pain Stated Complaint: CHEST PAIN Time Seen by Provider: 01/28/25 15:54 Arrival date/time: 01/28/25 15:46 RME / HPI RME / HPI narrative: 01/28/25 15:46 49-year-old female with a history of anxiety and chronic pain reports with complaints of chest pain and elevated blood pressure readings that began this morning Dr. Contreras?s Main ED Evaluation: 49yo female with a history of SLE, RA, fibromyalgia, Amalia's, COPD, asthma, anxiety presents to the ED for a chief complaint of intermittent left-sided chest pressure x 1 week. Patient states her pain radiates down her left arm. She notes she's been under a lot of stress due to a recent loss in the family. Patient denies any fever, chills, worsening cough, or any other associated symptoms. Patient is a current tobacco smoker. Related Data Home Medications ?Medication ?Instructions ?Recorded ?Confirmed atorvastatin 10 mg tablet 10 mg PO HS 01/20/19 4 levothyroxine 75 mcg tablet 50 mcg PO QMORNING 9 08/13/23 methocarbamol 750 mg tablet 750 mg PO BID 01/20/1909/30 pantoprazole 40 mg tablet,delayed 40 mg PO QDAY 08/13/23 release folic acid 1 mg tablet 1 mg PO HS 12/19/19 08/13/23 lorazepam 1 mg tablet 1 mg PO Q8H PRN Anxiety 12/0808/13/23 acetaminophen 300 mg-codeine 60 mg 0.5 tab PO Q6H PRN Pain 08/12/20 08/13/23 tablet metoprolol tartrate 50 mg tablet 100 mg PO BID 1 08/14/23 prednisone 1 mg tablet 5 mg PO BID PRN Arthritis 08/13/23 leflunomide 20 mg tablet 20 mg PO QDAY 05/10/2208/12 fenofibrate 54 mg tablet 54 mg PO QDAY 10/25/2208/12 cetirizine 10 mg tablet 10 mg PO QDAY 11/13/2208/12 hydrocodone bitartrate 10 mg 10 mg PO Q12H 11/13/22 capsule, oral only, extended rel 12 hr quetiapine 300 mg tablet 300 mg PO BID 11/13/2208/12 duloxetine 30 mg capsule,delayed 30 mg PO QPM 12/18/22 08/13/23 release (Cymbalta) duloxetine 60 mg capsule,delayed 60 mg PO QAM 12/18/22 08/13/23 release (Cymbalta) promethazine 25 mg tablet 25 mg PO BID 12/18/22 tocilizumab 200 mg/10 mL (20 1 mg IV QMONTH 12/18/22 0 08/13/23 mg/mL) intravenous solution benzonatate 100 mg capsule 100 mg PO TID 05/25/2309/30 fezolinetant 45 mg tablet (Veozah) 45 mg PO QDAY 05/2508/13/23 amoxicillin 500 mg capsule 500 mg PO Q8H 08/13/2309/30 Previous Rx's ?Medication ?Instructions ?Recorded oxycodone-acetaminophen 5 mg-325 1 tab PO Q8H PRN pain #7 tabs 02/17/23 mg tablet (Percocet) dexamethasone 6 mg tablet 6 mg PO QDAY #10 tabs cyclobenzaprine 10 mg tablet 10 mg PO HS #10 tabs 06/07 05/02 meloxicam 7.5 mg tablet 7.5 mg PO QDAY #10 tabs 06/07 05/02 Allergies Allergy/AdvReac Type Severity Reaction Status Date / Time [facility] ([facility] Allergy Severe Difficulty Verified 07/13/24 07:22 Breathing ondansetron AdvReac Severe SEVERE Verified 07/13/24 07:22 MIGRAINE tramadol AdvReac Severe ALTERS Verified 07/13/24 07:22 MOOD, CAUSES ANGER AND IRRITATION Review of Systems Review of Systems Systems Reviewed: All systems reviewed, normal except as documented Past Medical History Past Medical History NEUROLOGIC: Positive Neurological Disorders and Migraine; Negative Seizures CARDIAC: Positive Cardiac Disorders, Cardiac Arrhythmia, Hypercholesterolemia, Edema and Hypertension; Negative Angina, Congestive Heart Failure, Cellulitis or Varicose Veins RESPIRATORY: Positive Chronic Obstructive Pulmonary Disease (COPD), Asthma, Bronchitis, Pneumonia, Cough and Tobacco Use; Negative Tuberculosis or Sleep Apnea GASTROINTESTINAL: Positive Gastrointestinal Disorders, Pancreatitis, Ulcer, Irritable Bowel, Hiatal Hernia, Gastroesophageal Reflux Disease and Obesity; Negative Hepatitis or Gall Bladder Disease GENITOURINARY: Positive Genitourinary Disorders; Negative Renal Disease REPRODUCTIVE: Positive Previous Pregnancies; Negative Breast Cancer or Pelvic Inflammatory Disease MUSCULOSKELETAL: Positive Musculoskeletal Disorders, Arthritis, Rheumatoid Arth ritis, Scoliosis, Carpal Tunnel Syndrome, Fibromyalgia and Fractures ENDOCRINE: Positive Endocrine Disorders, Diabetes Mellitus Type 2, Hyperthyroidism, Hypothyroidism and Systemic Lupus Erythematosus; Negative Diabetes Mellitus Type 1 HEMATOLOGIC: Negative Blood Disorders or Sickle Cell Disease PSYCHO/SOCIAL: Positive Depression, Anxiety and Post Traumatic Stress Disorder; Negative Depression OTHER HISTORY: Positive Hospitalization, Autoimmune Disease, Falls and Chicken Pox; Negative Down Syndrome, Developmental Delay, Shingles, Blood Transfusions, Blood Transfusion Reaction, Anesthesia Reactions, Chemotherapy, Radiation Therapy, MRSA, Measles, Mumps, Cancer or Breast Cancer Family History FAMILY HISTORY: Positive Family Psychiatric Problems, Family Respiratory Disorders, Family Cardiac Disorders, Family Cancer and Family Surgery; Negative Family Gastrointestinal Problems or Family Anesthesia Reaction Surgical History SURGICAL: Positive Thyroidectomy (breach), Nose Surgery (septum), Tonsillectomy, Abdominal Surgery, Bowel Surgery, Lumpectomy (right), Hysterectomy and Tubal Ligation; Negative Cardiac Surgery, Pacemaker or Angiogram Social History SMOKING STATUS: Current every day smoker SECOND HAND EXPOSURE: Yes SUBSTANCE USE: does not use ED Exam Narrative Physical exam: Generally the patient is alert and in no obvious distress and not dyspneic or tachypneic, heart regular rate and rhythm, lungs show distant breath sounds bilaterally with fair to good air exchange, extremities show no edema, chest wall shows reproducible tenderness to palpation over the left anterior chest wall without rash crepitance or subcu air. Abdomen soft bowel sounds present nondistended nontender neurologic exam shows [place] Coma Scale of 15 Course Course Course Narrative: CXR is ordered for determining the etiology of chest pain. Quality Measures none Orders Category Date Time Status EKG (ED ONLY) *Do not use* NOW Care 01/28/25 15:49 Completed EKG (ED Only) Stat Exams 01/28/25 15:49 Draft XR chest 1V portable Stat Exams 01/28/25 18:54 Taken CBC Stat Lab 01/28/25 16:29 Completed CMP [Comprehensive Metabolic Panel] Stat Lab 01/28/25 16:29 Completed HCG,Qualitative Serum Stat Lab 01/28/25 16:29 Completed Troponin I Stat Lab 01/28/25 16:29 Completed Ketorolac Inj [Toradol Inj] Med 01/28/25 18:53 Discontinued 30 mg IM X1 ONE LORazepam [Ativan] Med 01/28/25 18:53 Discontinued 1 mg PO X1 ONE Vital Signs Vital signs: Vital Signs Temperature 97.5 F 01/28/25 15:56 Pulse Rate 88 01/28/25 15:56 Respiratory Rate 20 01/28/25 15:56 Blood Pressure 171/107 H 01/28/25 15:56 Pulse Oximetry (%) 92 L 01/28/25 15:56 Oxygen Delivery Method Room Air 01/28/25 15:56 Chest Pain [facility] Narrative [facility] Narrative:: Scribe Attestation: 01/28/25 Monique Harper am scribing for and in the presence of Dr. Contreras. EKG done at 3:52 PM shows normal sinus rhythm at a rate of 88 without ischemic change or ectopy. Troponin is not elevated. Chest x-ray shows no evidence of acute disease process. Patient has been under a great deal of stress lately due to family matters. I believe the patient's chest pain to be musculoskeletal and nonischemic and noncardiac in origin. I do not believe this patient have a pulmonary embolism. Patient will be discharged in stable condition to continue all current medications. Follow-up with her doctor. Return to ER as needed or if condition worsens. Patient data External records reviewed:: [facility] previous records (Per chart review, patient was seen here on 07/13/24 for nausea and vomiting.) Clinical information provided by:: patient Social determinants that could affect healthcare access:: substance use (tobacco use) Patient has the following chronic illnesses:: SLE, RA, fibromyalgia, Amalia's, COPD, asthma How is presenting disease/condition affected by chronic disease/condition?: exacerbated by Evaluation data The following diagnostics were reviewed and interpreted by me:: lab results, radiology exam(s) and EKG tracing(s) Lab and/or radiology exams considered but not ordered:: none Interpretation Summary: See [facility] Medications / Prescriptions Medications or Prescriptions considered but not ordered:: none Medication administrations:: Medication Administration History Discontinued Medications Ketorolac Tromethamine (Ketorolac Inj 30 Mg/Ml Vial) 30 mg IM X1 ONE Stop: 01/28/25 18:54 Lorazepam (Lorazepam 0.5 Mg Tablet) 1 mg PO X1 ONE Stop: 01/28/25 18:54 see above Consultations Consultation(s) initiated? (list below): No Diagnosis Chest Pain Differential Diagnosis: other (See MDM) Most likely diagnosis given after review of the tests above:: see clinical impression below Admission Indicated Admission indicated?: not indicated Admission Request Was there a request for admission?: No Disposition Plan Disposition Plan: Discharge Discharge Attestation Discharge Attestation: The patient and all family members were given an opportunity to ask questions and understood the discharge instructions. Discharge instructions specifically effects, indications for sooner follow up or return to the emergency department, and the expected course of current diagnosis. Patient condition: Stable Discharge Plan Plan Patient Disposition: HOME (Self Care) Prescriptions/Referrals Prescriptions/Med Rec: No Action hydrocodone bitartrate 10 mg capsule, oral only, ER 12hr 10 mg PO Q12H cetirizine 10 mg tablet 10 mg PO QDAY quetiapine 300 mg tablet 300 mg PO BID folic acid 1 mg Tablet 1 mg PO HS lorazepam 1 mg Tablet 1 mg PO Q8H PRN (Reason: Anxiety) acetaminophen-codeine 300-60 mg Tablet 0.5 tab PO Q6H PRN (Reason: Pain) atorvastatin 10 mg Tablet 10 mg PO HS levothyroxine 75 mcg Tablet 50 mcg PO QMORNING methocarbamol 750 mg Tablet 750 mg PO BID pantoprazole 40 mg Tablet,Delayed Release (Dr/Ec) 40 mg PO QDAY metoprolol tartrate 50 mg tablet 100 mg PO BID prednisone 1 mg Tablet 5 mg PO BID PRN (Reason: Arthritis) leflunomide 20 mg tablet 20 mg PO QDAY Patient Comments: TAKE ONE TABLET BY MOUTH EVERY DAY RHEUMATOID ARTHRITIS oxycodone-acetaminophen [Percocet] 5-325 mg tablet 1 tab PO Q8H MDD 4 PRN (Reason: pain) Qty: 7 0RF dexamethasone 6 mg tablet 6 mg PO QDAY Qty: 10 0RF amoxicillin 500 mg Capsule 500 mg PO Q8H fenofibrate 54 mg tablet 54 mg PO QDAY Patient Comments: TAKE ONE TABLET BY MOUTH EVERY DAY FOR CHOLESTEROL promethazine 25 mg Tablet 25 mg PO BID duloxetine [Cymbalta] 30 mg Capsule,Delayed Release(Dr/Ec) 30 mg PO QPM duloxetine [Cymbalta] 60 mg Capsule,Delayed Release(Dr/Ec) 60 mg PO QAM tocilizumab 200 mg/10 mL (20 mg/mL) Solution 1 mg IV QMONTH Veozah 45 mg Tablet 45 mg PO QDAY benzonatate 100 mg Capsule 100 mg PO TID cyclobenzaprine 10 mg tablet 10 mg PO HS Qty: 10 0RF meloxicam 7.5 mg tablet 7.5 mg PO QDAY Qty: 10 0RF Referrals: Caroline Gil FNP [Primary Care Provider] - In 1 week Problem List Clinical Impression: Chest wall pain Patient/Caregiver Discharge Instructions Education Materials: ED Chest Pain, Noncardiac Additional Instructions: Continue all current medications. Follow-up with your doctor. Return to ER as needed or if condition worsens. Print Language: Slovak Stand Alone Forms: Valerie Award Info., Patient Portal Info Letter
--- NOTE | 2025-01-28 18:54 | XR_ITS ---
EXAMINATION: AP chest single view TECHNIQUE: AP portable upright chest single view Date and time: January 28, 2025, 1857 hours, comparison July 13, 2024 INDICATIONS: Chest pain 1 week worse today FINDINGS: Subtle opacity right base Normal heart size Left subclavian Port-A-Cath tip satisfactory position Moderate osteopenia IMPRESSION: Suspicious for early pneumonia right base clinical correlation advised
--- NOTE | 2025-01-28 19:18 | PD.EDADDENDU ---
Emergency Room Addendum Addendum Narrative: Here in the emergency room patient felt anxious. She normally takes Ativan at home. Patient received Ativan 1 mg p.o. For the chest wall pain she also received Toradol 30 mg IM.
[2025-01-28] MEDS: KETOROLAC INJ 30 MG/ML VIAL IM (19:19)
== END 2025-01-28 19:28 | disposition home or self-care (01) ==
PROVIDERS: Physician Assistant; Emergency Provider Emergency Medicine; PCP Student in an Organized Health Care Education/Training Program
DX: R07.89 Other chest pain (principal)
CPT/HCPCS: 36415; 71045; 80053; 84484; 84703; 85025; 93005; 96372; 99283; J1885; A9270

== ENCOUNTER 2025-01-29 07:56 | Inpatient (IN) | payer MEDICAID, SELFPAY ==
[2025-01-29] VITALS (12 sets, daily range): BP systolic 126–170; BP diastolic 84–108; PULSE 65–84; RESP 14–22; TEMP 35.7–37.1; O2SAT 88–97; BMI 28.8; BMI 28.5
--- NOTE | 2025-01-29 08:09 | XR_ITS ---
EXAMINATION: PA lateral chest 2 views TECHNIQUE: Upright PA lateral chest 2 views Date and time: January 29, 2025, 0818 hours, comparison January 28, 2025 INDICATIONS: Chest pain bloody diarrhea 1 week FINDINGS: Normal heart size The lungs are clear. Left subclavian Port-A-Cath tip SVC satisfactory position Moderate osteopenia IMPRESSION: No pneumonia or pulmonary edema
--- NOTE | 2025-01-29 08:09 | EKG_ITS ---
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
--- NOTE | 2025-01-29 08:09 | PD.EDRME ---
Rapid Medical Screening Exam RME Arrival date/time: 01/29/25 07:56 49-year-old female presents to the Emergency Department for complaints of chest pain and bloody diarrhea Chief Complaint: Chest Pain Vital signs: Vital Signs Temperature 97.9 F 01/29/25 08:04 Pulse Rate 81 01/29/25 08:04 Respiratory Rate 22 H 01/29/25 08:04 Blood Pressure 132/93 H 01/29/25 08:04 Pulse Oximetry (%) 91 L 01/29/25 08:04 Oxygen Delivery Method Room Air 01/29/25 08:04
[2025-01-29 08:45] LABS: Basophils # (Auto) 0.1 Thou/mm3 (0.0-0.2); Basophils % (Auto) 1 % (0-2.5); Eosinophils # (Auto) 0.3 Thou/mm3 (0.0-0.5); Eosinophils % (Auto) 3 % (0-10); Hematocrit 49.5 % (36.0-46.0); Hemoglobin 15.7 g/dL (12.0-16.0); Immature Granulocytes Auto 0.03 Thou/mm3 (0.00-0.00); Lymphocytes # (Auto) 2.8 Thou/mm3 (1.0-4.8); Lymphocytes % (Auto) 22 % (10-50); Mean Corpuscular HGB Conc 31.7 g/dl (31.0-37.0); Mean Corpuscular Hemoglobin 30.2 pg (25.0-35.0); Mean Corpuscular Volume 95 fL (80-100); Monocytes # (Auto) 0.8 Thou/mm3 (0.0-0.8); Monocytes % (Auto) 7 % (0-12); Neutrophils # (Auto) 8.4 Thou/mm3 (1.8-7.7); Neutrophils % (Auto) 67 % (37-80); Nucleated Red Blood Cell # 0.00 Thou/mm3 (0.00-0.00); Nucleated Red Blood Cell % 0 /100 WBC (0); Platelet Count 110 Thou/mm3 (140-440); RDW Standard Deviation 44.6 fL (36.4-46.3); Red Blood Count 5.20 Miln/mm3 (4.00-5.20); White Blood Count 12.5 Thou/mm3 (3.6-11.0)
[2025-01-29 08:57] LABS: Collection Type, Urine Clean Catch
[2025-01-29 09:05] LABS: HCG Qualitative,Urine Negative
[2025-01-29 09:08] LABS: Bacteria,Urine Rare; Bilirubin,Urine Negative (Negative); Blood,Urine 2+ (Negative); Clarity,Urine Clear (Clear/Hazy); Color,Urine Lt-Yellow (Lt Yel-Yel); Culture Indicated,Urine Not Indicated; Glucose, Urine Negative (Negative); Ketones,Urine Negative (Negative); Leukocyte Esterase,Urine Negative (Negative); Nitrite,Urine Negative (Negative); PH,Urine 6.0 (5.0-7.0); Protein,Urine Negative (Neg - Trace); RBC,Urine 1 /hpf (0-3); Specific Gravity,Urine 1.012 (1.001-1.035); Squamous Epithelial Cell,Urine 2 /hpf (0-5); Urobilinogen,Urine Negative mg/dL (0.0-1.0); WBC,Urine 1 /hpf (0-5)
[2025-01-29 09:08] LABS: INR 1.1 (0.9-1.3); Partial Thromboplastin Time 27.3 Seconds (22.0-36.0); Prothrombin Time 11.9 Seconds (9.0-12.2)
[2025-01-29 09:24] LABS: B-Type Natriuretic Peptide 30 pg/mL (0-100)
[2025-01-29 09:47] LABS: Alanine Aminotransferase 19 U/L (10-49); Albumin, Serum 4.9 gm/dL (3.5-5.0); Albumin/Globulin Ratio 2.7 (1.2-2.2); Alkaline Phosphatase 69 U/L (46-116); Anion Gap 8 (7-16); Aspartate Amino Transferase 36 U/L (0-34); BUN/Creatinine Ratio 10 Ratio (12-20); Bilirubin,Total 0.4 mg/dL (0.3-1.2); Blood Urea Nitrogen 7 mg/dL (9-23); Calcium 9.1 mg/dL (8.3-10.6); Calcium (Corrected) 9.1 mg/dL (8.5-10.1); Carbon Dioxide 29.7 mMol/L (20.0-31.0); Chloride 105 mMol/L (98-107); Creatinine (Component) 0.7 mg/dL (0.6-1.3); Estimated Creatinine Clearance 93.6 mL/min (>60); Globulin 1.8 gm/dL (2.3-3.5); Glucose 167 mg/dL (74-106); Lipase 37 U/L (12-53); Magnesium 1.7 mg/dL (1.6-2.6); Osmolality,Calculated 286 (275-295); Potassium 4.2 mMol/L (3.4-5.1); Sodium 143 mMol/L (136-145); Total Protein 6.7 gm/dL (5.7-8.2); Troponin I < 0.002 ng/mL (0.0-0.045); eGFR > 60 See Note
--- NOTE | 2025-01-29 12:35 | PD.EDCHEST ---
ED Chest Pain RME/HPI General Chief Complaint: Chest Pain Stated Complaint: chest pain, bloody diarrhea Time Seen by Provider: 01/29/25 09:39 Source: patient Arrival date/time: 01/29/25 07:56 RME / HPI RME / HPI narrative: 01/29/25 07:56 49-year-old female presents to the Emergency Department for complaints of chest pain and bloody diarrhea HPI: CP x 1 week intermittant, diffuse similar to her Lupas, chronic pain syndrome, achy bilateral shoulders, left arm, similar to previous. But increasing over the last 1 day. Patient takes chronic pain medicine and some medication for fibromyalgia, rheumatoid arthritis. Patient with chronic shortness of breath that has not changed. Patient also incidentally states she has had diarrhea for the last 1 week. The patient states that in the last 24 hours she started having bright red blood per rectum to include multiple times. She thought it was just diarrhea but in the emergency department the patient has bright red without clots in her diaper. Patient is taking meloxicam. Past medical history:significant history of rheumatoid arthritis, fibromyalgia Related Data Home Medications ?Medication ?Instructions ?Recorded ?Confirmed atorvastatin 10 mg tablet 10 mg PO HS 01/20/19 08/13/23 levothyroxine 75 mcg tablet 50 mcg PO QMORNING 01/20/19 08/13/23 methocarbamol 750 mg tablet 750 mg PO BID 01/20/19 08/13/23 pantoprazole 40 mg tablet,delayed 40 mg PO QDAY 01/20/19 08/13/23 release folic acid 1 mg tablet 1 mg PO HS 12/19/19 08/13/23 lorazepam 1 mg tablet 1 mg PO Q8H PRN Anxiety 12/19/19 08/13/23 metoprolol tartrate 50 mg tablet 100 mg PO BID 11/03/20 08/14/23 prednisone 1 mg tablet 5 mg PO BID PRN Arthritis 03/21/21 08/13/23 leflunomide 20 mg tablet 20 mg PO QDAY 05/10/22 08/13/23 fenofibrate 54 mg tablet 54 mg PO QDAY 10/25/22 08/13/23 hydrocodone bitartrate 10 mg 10 mg PO Q12H 11/13/22 08/13/23 capsule, oral only, extended rel 12 hr quetiapine 300 mg tablet 300 mg PO BID 11/13/22 08/13/23 duloxetine 30 mg capsule,delayed 30 mg PO QPM 12/18/22 08/13/23 release (Cymbalta) duloxetine 60 mg capsule,delayed 60 mg PO QAM 12/18/22 08/13/23 release (Cymbalta) promethazine 25 mg tablet 25 mg PO BID 12/18/22 08/13/23 tocilizumab 200 mg/10 mL (20 1 mg IV QMONTH 12/18/22 08/13/23 mg/mL) intravenous solution fezolinetant 45 mg tablet (Veozah) 45 mg PO QDAY 05/25/23 08/13/23 Previous Rx's ?Medication ?Instructions ?Recorded oxycodone-acetaminophen 5 mg-325 1 tab PO Q8H PRN pain #7 tabs 02/17/23 mg tablet (Percocet) dexamethasone 6 mg tablet 6 mg PO QDAY #10 tabs 02/21/23 meloxicam 7.5 mg tablet 7.5 mg PO QDAY #10 tabs 06/18/23 Allergies Allergy/AdvReac Type Severity Reaction Status Date / Time infliximab (From Remicade) Allergy Severe Difficulty Verified 07/13/24 07:22 Breathing ondansetron AdvReac Severe SEVERE Verified 07/13/24 07:22 MIGRAINE tramadol AdvReac Severe ALTERS Verified 07/13/24 07:22 MOOD, CAUSES ANGER AND IRRITATION Course Orders Category Date Time Status CT Screening NOW Care 01/29/25 12:51 Active EKG (ED ONLY) *Do not use* NOW Care 01/29/25 08:[address] abdomen pelvis w con Stat Exams 01/29/25 12:51 Completed EKG (ED Only) Stat Exams 01/29/25 08:09 Draft XR chest 2V Stat Exams 01/29/25 08:09 Completed B-Type Natriuretic Peptide Stat Lab 01/29/25 08:25 Completed CBC Stat Lab 01/29/25 08:25 Completed Comprehensive Metabolic Panel Stat Lab 01/29/25 09:19 Completed HCG Qualitative,Urine Stat Lab 01/29/25 08:47 Completed Lipase Stat Lab 01/29/25 09:19 Completed Magnesium Stat Lab 01/29/25 09:19 Completed Partial Thromboplastin Time Stat Lab 01/29/25 08:25 Completed Prothrombin Time with INR Stat Lab 01/29/25 08:25 Completed Troponin I Stat Lab 01/29/25 09:19 Completed Type and Screen Stat Lab 01/29/25 14:05 Completed Urinalysis, C/S if Indicated Stat Lab 01/29/25 08:47 Completed Albuterol/Ipratr Rt Nessa [Duoneb Rt Nessa] Med 01/29/25 14:54 Discontinued 3 ml INH X1 ONE Morphine* Inj Med 01/29/25 15:36 Discontinued 4 mg IVP X1 ONE Ondansetron Inj [Zofran Inj] Med 01/29/25 15:36 Discontinued 4 mg IVP X1 ONE Vital Signs Vital signs: Vital Signs Temperature 97.9 F 01/29/25 08:04 Pulse Rate 81 01/29/25 08:04 Respiratory Rate 22 H 01/29/25 08:04 Blood Pressure 132/93 H 01/29/25 08:04 Pulse Oximetry (%) 91 L 01/29/25 08:04 Oxygen Delivery Method Room Air 01/29/25 08:04 PROCEDURES: Stool Hemoccult Procedural Steps Taken: stool placed in appropriate test area, developer placed on stool and control areas and controls appropriately positive and negative Hemoccult result: positive (lot 05/0206/06/28) Chest Pain Medications / Prescriptions Medication administrations:: Medication Administration History Acetaminophen (Acetaminophen 325 Mg Tablet) 650 mg PO Q6H PRN PRN Reason: Fever >100.4 or pain 1-3 Stop: 02/28/25 17:05 Hydrocodone Bitart/Acetaminophen (Hydrocodone/Apap 5/325 Tablet) 1 tab PO Q6HR PRN PRN Reason: PAIN SCALE 4-6 (Moderate Stop: 02/03/25 17:05 Last Admin: 01/29/25 17:37 Dose: 1 tab Documented By: ED Albuterol/Ipratropium (Albuterol/Ipratropium (Duoneb) Rt Nessa 3 Ml Nebu) 3 ml INH Q4HRRT VANESA Stop: 02/28/25 18:59 Last Admin: 01/29/25 18:32 Dose: 3 ml Documented By: KL Atorvastatin Calcium (Atorvastatin Calcium 10 Mg Tablet) 10 mg PO HS VANESA Stop: 02/28/25 20:59 Duloxetine HCl (Duloxetine Hcl 30 Mg Capsule) 30 mg PO QPM VANESA Stop: 02/28/25 20:59 Duloxetine HCl (Duloxetine Hcl 30 Mg Capsule) 60 mg PO QAM [facility] Stop: 03/01/25 08:59 Lactated Ringer's (Lactated Ringers) 1,000 mls @ 75 mls/hr IV .[id number] [facility] Stop: 01/30/25 19:54 Last Admin: 01/29/25 17:40 Dose: 75 mls/hr Documented By: ED Levothyroxine Sodium (Levothyroxine Sodium 25 Mcg Tablet) 50 mcg PO ACBR [facility] Stop: 02/28/25 17:44 Lorazepam (Lorazepam 0.5 Mg Tablet) 1 mg PO Q8H PRN PRN Reason: ANXIETY Stop: 02/03/25 17:49 Metoclopramide HCl (Metoclopramide 5 Mg Tablet) 10 mg PO Q6H PRN PRN Reason: NAUSEA OR VOMITING Stop: 02/28/25 17:05 Last Admin: 01/29/25 17:37 Dose: 10 mg Documented By: ED Metoprolol Tartrate (Metoprolol Tartrate 25 Mg Tablet) 100 mg PO BID [facility] Stop: 02/28/25 20:59 Morphine Sulfate (Morphine Sulf Inj 4 Mg/Ml Vial) 2 mg IVP Q6HR PRN PRN Reason: PAIN SCALE 7-10 (Severe Stop: 02/03/25 17:05 Pantoprazole Sodium (Pantoprazole Inj 40 Mg Vial) 40 mg IVP BID [facility] Stop: 02/28/25 20:59 Sennosides (Senna Tablet) 1 tab PO QDAY PRN; Protocol PRN Reason: constipation Stop: 02/28/25 17:05 Discontinued Medications Albuterol/Ipratropium (Albuterol/Ipratropium (Duoneb) Rt Nessa 3 Ml Nebu) 3 ml INH X1 ONE Stop: 01/29/25 14:55 Last Admin: 01/29/25 15:08 Dose: 3 ml Documented By: MW Morphine Sulfate (Morphine Sulf Inj 4 Mg/Ml Vial) 4 mg IVP X1 ONE Stop: 01/29/25 15:37 Last Admin: 01/29/25 15:51 Dose: 4 mg Documented By: ED Ondansetron HCl (Ondansetron Inj 2 Mg/Ml Inj 2 Ml) 4 mg IVP X1 ONE; Protocol Stop: 01/29/25 15:37 Last Admin: 01/29/25 15:44 Dose: 4 mg Documented By: ED Pantoprazole Sodium (Pantoprazole 40 Mg Tablet) 40 mg PO Q12HR VANESA Stop: 02/28/25 20:59 Discharge Plan Plan Patient Disposition: Admit Acute Care w/in Hospital
--- NOTE | 2025-01-29 12:50 | PC.NURSE ---
Dr. Rogel is bedside to do rectal exam and occult stool test. Pt. has bright red blood on her buttocks and around her anus. Pt. tolerated well. Occult test is positive.
--- NOTE | 2025-01-29 12:51 | XR_ITS ---
Examination: CT abdomen with intravenous contrast CT pelvis with intravenous contrast 2-D coronal reconstructions 2-D sagittal reconstructions Date and time of exam: January 29, 2025, 1804 hours, comparison February 21, 2023 INDICATIONS: Left lower abdominal pain rectal bleeding nausea diarrhea beginning 1 week ago. CTDI: vol (mGy) 8.22 DLP: (mGycm) 422 Technique: Multiple axial sections of the abdomen and pelvis have been obtained. 64 slice high-resolution scanner used. 3 mm axial sections have been obtained, post intravenous injection 60 cc Isovue 370 2-D sagittal, coronal reconstructions obtained. Low dose protocols were performed. One or more of the following dose reduction techniques were used; automated exposure control, adjustment of the mA and/or KV according to patient size, use of iterative reconstruction technique. Findings: Fatty infiltration throughout the liver, hepatomegaly 20 cm Absent gallbladder Common bile duct 8 mm no definite stones No pancreatic mass Normal adrenal glands No renal or ureteral calculi, no hydronephrosis Aortic calcification no aneurysmal dilatation 20 mm fat-containing umbilical hernia No bowel obstruction Scattered diverticulitis Absent uterus No adnexal mass Moderate osteopenia IMPRESSION: Moderate hepatomegaly fatty infiltration Common bile duct 8 mm no definite stones, if biliary colic is a clinical consideration suggest hepatobiliary sonography follow-up. No bowel obstruction nonspecific colitis or enteritis pattern
--- NOTE | 2025-01-29 14:15 | PC.NURSE ---
Pt. here from home to room, 11, pt. states she pooped her pants this morning and when she cleaned herself there was bright red blood. Pt. states she hasn't been feeling well X 1 week, pt. states she has nausea everyday and has been a little dizzy. Pt.'s youngest son is bedside. Pt. states she wears O2 at home via [place] 2L. Pt. states she only wears the O2 at night or when she is laying down.
[2025-01-29] MEDS: ALBUTEROL/IPRATROPIUM (Duoneb) RT SOL 3 ML NEBU INH ×3 (15:08→22:30)
[2025-01-29] MEDS: ONDANSETRON INJ 2 MG/ML INJ 2 ML 4 MG IVP (15:44)
[2025-01-29] MEDS: MORPHINE SULF INJ 4 MG/ML VIAL IVP (15:51)
--- NOTE | 2025-01-29 15:53 | PC.NURSE ---
Dr. Rios bedside talking with pt.
--- NOTE | 2025-01-29 17:21 | PD.RESHP ---
Documentation for date of: 01/29/25 Patient is a 49-year-old female with a past medical history of hypertension, hyperlipidemia, history of prediabetes (no medication ever required), COPD, current smoker?[id number] history, rheumatoid arthritis, fibromyalgia, lupus s/p port currently in lupus remission, history of lumpectomy-biopsy showed negative pathology, GERD, anxiety, and depression urethral sling (2019), laparotomy w/ sigmoid colectomy for rectal prolapse (2018). Patient presented to the emergency room with a chief complaint of hematochezia and chest pain. Patient stated she has been having blood per rectum for about 1 week and worsening over the last several days. Patient stated diarrhea present with hematochezia noted as well. Denied sick contacts or under cook meat. 1 bowel movement today that was soft. Denied recent antibiotic use. Chest Pain also complained of chest pain is described as diffused pressure, radiates to neck and left lower upper extremity, appears at rest, last minutes to hours. Denied sick contacts. Denied chest pain. Concern for acute lower GI bleed given bright red per rectum, likely hematochezia. Concer hemorrhoids vs diverticulitis vs colitis given history of auto-immune disease vs upper GI bleed. PPI IV 40 mg BID. NPO. Pending GI consult/EGD. Ischemic colitis can not be ruled out but abdominal exam not out of porportion to pain. Non distended. Diffuse tenderness. Type and Screen. Per chart review, Amoxicllin, noted as recent prescription last month. Diarrhea infectious etiology can not be rued out such as viral or bacterial given leukocytosis, holding off antibiotics. Order C. diffe and stool studies. Chest pain based on characterization, duration greater than 2 minutes, occuring at rest, less likely cardiac in nature given negative troponin and EKG vs muscular skeletal vs anxiety related. Hodling off aspirin given GI bleed. consider cardiolog consult. Leukocytosis noted, UA negative, Cxr negative, consider gastroenteritis vs reactive. Resume hypothyroid levothyroxine 50 mcg. Anxiety and depression medication lorazepam. Pending GI Consult. Senior Resident Attestation: I have discussed the case with supervising physician and nutrition intern physician involved in the care of patient. I personally saw and examined patient and discussed the assessment and plan with the entire medical team, including attending. I agree with assessment and plan as documented below. - The patient's plan was discussed with attending Dr. Deirdre Galicia MD PGY2 Internal Medicine HPI History of Present Illness History of present illness: 49yo female with a history of SLE, RA, fibromyalgia, Amalia's, COPD, asthma, anxiety presents to the Emergency Department for complaints of chest pain and bloody streaks per rectum post stool. She is a poor historian. Came to the ED yesterday for a similar presentation but without any hematochezic symptoms. She reports 2-3 loose stools per day and very minimal blood streaks on toilet paper starting last week. This morning she unknowingly pooped her pants and noticed lots of bright red blood when cleaning it up. She currently does not have an appetite, but also attempted to hide her sodas from the interviewer when told she would be NPO for likely procedure tonight. She asked multiple times if she could keep drinking sodas and eating before the procedure, for which she was clearly and directly explained to not eat anything before the procedures and the risks involved. She states that she only uses 2 ply toilet paper and double wraps her hand before wiping her butt. She is currently on home oxygen 2-3L for COPD and asthma. She states that her chest pain and arm pain are different from fibromyalgia experiences of the past; however, she is unable to explain how it is different from her chronic fibromyalgia or why it is the exact same presentation as yesterday's attempt at admission. She is able to move her 4 limbs in full range of motion and strength without any pain, numbness, or tingling. In the ED VSS, labs revealed a mild leukocytosis 12.5, coags wnl, glucose 167, UA +2 blood, EKG unremarkable. No treatments given. GI consulted for scope to observe. Patient admitted for GI bleed. Code: Full Insulin: No Medical Hx: SLE, RA, fibromyalgia, Amalia's, COPD, asthma, anxiety Medications: Pending med rec Allergies: Zofran, infliximab, tramadol Surgical history: lap incarcerated incisional hernia, hysterectomy, colectomy, cholecystectomy, appendectomy, urethral sling x2 Fhx: mom of cancer (brain, thyroid, bone - unsure of if these are metastases) Alcohol: last drink 4-5 years ago Cigarettes/tobacco: 35 pack years Recreational drugs: denies All 12 systems reviewed and were negative except otherwise stated in HPI. Exam Vital Signs Temp Pulse Resp BP Pulse Ox O2 Del Method O2 Flow Rate 97.8 F 82 16 170/108 H 91 L Nasal Cannula 2 01/29/25 15:40 01/29/25 15:40 01/29/25 15:40 01/29/25 15:40 01/29/25 15:40 01/29/25 15:40 01/29/25 15:40 Narrative Exam GENERAL APPEARANCE: AOx3. NAD, activity normal for age, well developed/ well nourished, no cyanosis, pallor, or diaphoresis. HEENT: Normocephalic atraumatic, no facial trauma, neck is supple. Lids/conjunctiva normal. Mucous membranes moist, nares normal, lips/teeth normal uvula midline without oral pharyngeal erythema, exudate or swelling TMs normal bilaterally. No lymphangitis/lymphedema. CARDIAC: Regular rate and rhythm, S1+S2 heard. No murmurs, rubs, or gallops noted RESPIRATORY: respiratory effort normal, speaks in full sentences, no tripod position, no accessory muscle use. Lungs clear to auscultation without rhonchi, wheezes, rales ABDOMINAL: NBS. Soft, ND/NT. No evidence of fluid wave. No pulsatile masses on exam, rebound tenderness, Bradford sign or pain over Mcburney's point. MUSCLES/EXTREMITIES: No abnormal range of motion, no swelling. DERM: Warm, pink and dry. No rashes, dermatoses, petechiae or lesions. NEUROLOGICAL: Speech is clear and appropriate. Normal level of consciousness. Gait and coordination are normal. 5/5 strength in all extremities. PSYCH: Normal mood and affect. Judgement/competence is appropriate RECTAL: Skin tags, possibly hemorrhoids, no evidence of active bleeding, both sides of the anus were stained light pink with blood, no oozing noted. Results: Labs 01/31/25 05:05 01/31/25 05:05 Labs: Short CBC 01/29/25 Range/Units 08:25 WBC 12.5 H (3.6-11.0) Thou/mm3 Hgb 15.7 (12.0-16.0) g/dL Hct 49.5 H (36.0-46.0) % Plt Count 110 L (140-440) Thou/mm3 BMP 01/29/25 09:19 Sodium 143 Potassium 4.2 Chloride 105 Carbon Dioxide 29.7 BUN 7 L Creatinine 0.7 Glucose 167 H Calcium 9.1 Cardiac Enzymes 01/29/25 Range/Units 09:19 Troponin I < 0.002 (0.0-0.045) ng/mL Liver Function 01/29/25 Range/Units 09:19 Total Bilirubin 0.4 (0.3-1.2) mg/dL AST 36 H (0-34) U/L ALT 19 (10-49) U/L Alkaline Phosphatase 69 (46-116) U/L Albumin 4.9 (3.5-5.0) gm/dL Urine 01/29/25 Range/Units 08:47 Urine Color Lt-Yellow (Lt Yel-Yel) Urine Clarity Clear (Clear/Hazy) Urine pH 6.0 (5.0-7.0) Ur Specific [place] 1.012 (1.001-1.035) Urine Protein Negative (Neg - Trace) Urine Glucose (UA) Negative (Negative) Quality Measures Quality Measures VTE prophylaxis Medications Home Medications and Allergies Home Medications ?Medication ?Instructions ?Recorded ?Confirmed ?Type atorvastatin 10 mg tablet 10 mg PO HS 01/20/19 01/29/25 History levothyroxine 75 mcg tablet 50 mcg PO QMORNING 01/20/19 01/29/25 History methocarbamol 750 mg tablet 750 mg PO BID 01/20/19 01/29/25 History pantoprazole 40 mg tablet,delayed 40 mg PO QDAY 01/20/19 01/29/25 History release folic acid 1 mg tablet 1 mg PO HS 12/19/19 01/29/25 History lorazepam 1 mg tablet 1 mg PO Q8H PRN Anxiety 12/19/19 01/29/25 History metoprolol tartrate 50 mg tablet 100 mg PO BID 11/03/20 01/29/25 History leflunomide 20 mg tablet 20 mg PO QDAY 05/10/22 01/29/25 History fenofibrate 54 mg tablet 54 mg PO HS 10/25/22 01/29/25 History hydrocodone bitartrate 10 mg 10 mg PO Q12H 11/13/22 01/29/25 History capsule, oral only, extended rel 12 hr Held on 01/29/25. Instructions: Doctor's Order quetiapine 300 mg tablet 200 mg PO HS 11/13/22 01/29/25 History duloxetine 30 mg capsule,delayed 30 mg PO QPM 12/18/22 01/29/25 History release (Cymbalta) duloxetine 60 mg capsule,delayed 60 mg PO QAM 12/18/22 01/29/25 History release (Cymbalta) promethazine 25 mg tablet 25 mg PO BID 12/18/22 01/29/25 History tocilizumab 200 mg/10 mL (20 1 mg IV QMONTH 12/18/22 01/29/25 History mg/mL) intravenous solution Held on 01/29/25. Instructions: Doctor's Order fezolinetant 45 mg tablet (Veozah) 45 mg PO QDAY 05/25/23 01/29/25 History Held on 01/29/25. Instructions: Doctor's Order estradiol 2 mg tablet 2 mg PO HS 01/29/25 01/29/25 History rosuvastatin 20 mg tablet 20 mg PO HS 01/29/25 01/29/25 History Allergies Allergy/AdvReac Type Severity Reaction Status Date / Time infliximab (From [employer]) Allergy Severe Difficulty Verified 07/13/24 07:22 Breathing ondansetron AdvReac Severe SEVERE Verified 07/13/24 07:22 MIGRAINE tramadol AdvReac Severe ALTERS Verified 07/13/24 07:22 MOOD, CAUSES ANGER AND IRRITATION Visit Medications Acetaminophen (Acetaminophen 325 Mg Tablet) 650 mg PO Q6H PRN PRN Reason: Fever >100.4 or pain 1-3 Stop: 02/28/25 17:05 Hydrocodone Bitart/Acetaminophen (Hydrocodone/Apap 5/325 Tablet) 1 tab PO Q6HR PRN PRN Reason: PAIN SCALE 4-6 (Moderate Stop: 02/03/25 17:05 Lactated Ringer's (Lactated Ringers) 1,000 mls @ 75 mls/hr IV .[id number] [facility] Stop: 01/30/25 19:54 Metoclopramide HCl (Metoclopramide 5 Mg Tablet) 10 mg PO Q6H PRN PRN Reason: NAUSEA OR VOMITING Stop: 02/28/25 17:05 Morphine Sulfate (Morphine Sulf Inj 4 Mg/Ml Vial) 2 mg IVP Q6HR PRN PRN Reason: PAIN SCALE 7-10 (Severe Stop: 02/03/25 17:05 Pantoprazole Sodium (Pantoprazole 40 Mg Tablet) 40 mg PO Q12HR VANESA Stop: 02/28/25 20:59 Sennosides (Senna Tablet) 1 tab PO QDAY PRN; Protocol PRN Reason: constipation Stop: 02/28/25 17:05 Discontinued Medications Albuterol/Ipratropium (Albuterol/Ipratropium (Duoneb) Rt Nessa 3 Ml Nebu) 3 ml INH X1 ONE Stop: 01/29/25 14:55 Last Admin: 01/29/25 15:08 Dose: 3 ml Morphine Sulfate (Morphine Sulf Inj 4 Mg/Ml Vial) 4 mg IVP X1 ONE Stop: 01/29/25 15:37 Last Admin: 01/29/25 15:51 Dose: 4 mg Ondansetron HCl (Ondansetron Inj 2 Mg/Ml Inj 2 Ml) 4 mg IVP X1 ONE; Protocol Stop: 01/29/25 15:37 Last Admin: 01/29/25 15:44 Dose: 4 mg Assessment & Plan Plan 49yo female with a history of SLE, RA, fibromyalgia, Amalia's, COPD, asthma, anxiety presents to the Emergency Department for complaints of chest pain and bloody streaks per rectum post stool. #GI Bleed, likely lower #Hematochezia #intractable naseua #Thrombocytopenia #Leukocytosis Patient reports active bloody streaks per rectum on toilet paper for last week. Today she unknowingly stooled herself and found too much bright red blood in the mess. Labs are unremarkable. Her hemoglobin is borderline elevated 15.7. Reports 2-3 loose stools per day and wiping multiple times with 2-ply toilet paper. Patient does not have any signs of itching or irritation. Skin tags seen on exam. Patient most likely has internal hemorrhoids that she incessantly wiped at, and in combination with her borderline thrombocytopenia and mild leukocytosis and now presenting with bright red blood per her rectum. Plan: -Pending EGD -Protonix 40 mg IV BID -GI consulted appreciate recs # History of COPD # History of asthma # History of nicotine Dependence Disorder Past medical history of COPD given 30 pack year history of smoking, and still actively smoking. Denied wheezing and non appreciated during physical exam. Home medication in Albuterol and Tiotroprium. Plan: -Duonebs Q4HRRT # History of fibromyalgia # History of RA # History of SLE (no flare ups for years) Patient presents to ED multiple times with left arm and chest pain, with conflicting story saying it is just like her fibromyalgia pain and other times that it is nothing like her fibromyalgia pain. Plan: -Narco 5mg PO Q6HR PRN # History of hypertension Per patient history past medical history of HTN, with home mediation of Metoprolol tartrate 100 mg PO BID Plan: -Metoprolol Tartate 100mg PO BID # History of hypothyroidism # History of Amalia's Patinet has a past medical history of hypothyroidism and currently Levothyroxine 50 mcg before meals. Plan: -TSH AM Draw -Levothyroxine 50mcg # History of hypercholesterolemia Concern as patient has taken Rosuvastatin and Atorvastatin, upon discharge D/C Rosuvastatin. Plan: -Atorvastatin 10mg PO HS -Lipid Panel AM # History of anxiety Past medical history of anxiety and possible illness depression. Plan: -Quetiiapine 200 mg PO HS -Ativan 1 mg PO Q8HR PRN Health Maintenance: Code status: Full DVT prophylaxis: SCD GI prophylaxis: Protonix IV Diet: NPO Dent: None Lines: PIV Supplemental O2: NC Disposition: Med tele Patient seen and reviewed with attending Dr. Gilmore and supervising resident Dr. Galicia. Note written by Beny Sun MD PGY-1 Attending Provider Attestation/Addendum I or my resident physicians have discussed care with the ED physician and I have made the decision to admit. I have discussed and was present for the essential components of the history, physical examination, diagnosis, and treatment plan with the resident. I agree with the patient's care as documented by the resident and amended herein by me. Alfredo Gilmore DO. Although this document has been carefully reviewed, there may still be some phonetic and other typographical errors. These errors are purely grammatical due to imperfections in the software program and should not be construed in any way to compromise the substance of the patient's medical care during this visit.
[2025-01-29] MEDS: HYDROcodone/APAP 5/325 TABLET 1 TAB PO (17:37)
[2025-01-29] MEDS: METOCLOPRAMIDE 5 MG TABLET 10 MG PO (17:37)
[2025-01-29] MEDS: RINGERS LACTATED 1000 ML 1,000 ML 75 ML IV ×2 (17:40→22:13)
[2025-01-29] MEDS: LEVOTHYROXINE SODIUM 25 MCG TABLET 50 MCG PO (20:57)
[2025-01-29] MEDS: METOPROLOL TARTRATE 25 MG TABLET 100 MG PO (20:57)
[2025-01-29] MEDS: ATORVASTATIN CALCIUM 10 MG TABLET PO (20:57)
[2025-01-29] MEDS: DULoxetine HCL 30 MG CAPSULE PO (20:58)
[2025-01-29] MEDS: MORPHINE SULF INJ 4 MG/ML VIAL 2 MG IVP (22:07)
[2025-01-29] MEDS: NA SU/NAHCO3/KC/PEG (Golytely) 4,000 ML BTL 4000 ML PO (22:12)
--- NOTE | 2025-01-29 22:21 | PD.IMCONS ---
HPI Data of Consult Requesting Physician: Aditya Gilmore DO Primary Care Provider: FANNY Yap Consult Narrative cc:: cc: Aditya Gilmore, DO Meds Home Medications and Allergies Home Medications ?Medication ?Instructions ?Recorded ?Confirmed ?Type atorvastatin 10 mg tablet 10 mg PO HS 01/20/19 01/29/25 History levothyroxine 75 mcg tablet 50 mcg PO QMORNING 01/20/19 01/29/25 History methocarbamol 750 mg tablet 750 mg PO BID 01/20/19 01/29/25 History pantoprazole 40 mg tablet,delayed 40 mg PO QDAY 01/20/19 01/29/25 History release folic acid 1 mg tablet 1 mg PO HS 12/19/19 01/29/25 History lorazepam 1 mg tablet 1 mg PO Q8H PRN Anxiety 12/19/19 01/29/25 History metoprolol tartrate 50 mg tablet 100 mg PO BID 11/03/20 01/29/25 History leflunomide 20 mg tablet 20 mg PO QDAY 05/10/22 01/29/25 History fenofibrate 54 mg tablet 54 mg PO HS 10/25/22 01/29/25 History hydrocodone bitartrate 10 mg 10 mg PO Q12H 11/13/22 01/29/25 History capsule, oral only, extended rel 12 hr Held on 01/29/25. Instructions: Doctor's Order quetiapine 300 mg tablet 200 mg PO HS 11/13/22 01/29/25 History duloxetine 30 mg capsule,delayed 30 mg PO QPM 12/18/22 01/29/25 History release (Cymbalta) duloxetine 60 mg capsule,delayed 60 mg PO QAM 12/18/22 01/29/25 History release (Cymbalta) promethazine 25 mg tablet 25 mg PO BID 12/18/22 01/29/25 History tocilizumab 200 mg/10 mL (20 1 mg IV QMONTH 12/18/22 01/29/25 History mg/mL) intravenous solution Held on 01/29/25. Instructions: Doctor's Order fezolinetant 45 mg tablet (Veozah) 45 mg PO QDAY 05/25/23 01/29/25 History Held on 01/29/25. Instructions: Doctor's Order estradiol 2 mg tablet 2 mg PO HS 01/29/25 01/29/25 History rosuvastatin 20 mg tablet 20 mg PO HS 01/29/25 01/29/25 History Allergies Allergy/AdvReac Type Severity Reaction Status Date / Time infliximab (From Remicade) Allergy Severe Difficulty Verified 07/13/24 07:22 Breathing ondansetron AdvReac Severe SEVERE Verified 07/13/24 07:22 MIGRAINE tramadol AdvReac Severe ALTERS Verified 07/13/24 07:22 MOOD, CAUSES ANGER AND IRRITATION Exam Vital Signs Temp Pulse Resp BP Pulse Ox O2 Del Method O2 Flow Rate 96.2 F L 82 18 134/84 H 90 L Nasal Cannula 2 01/29/25 20:45 01/29/25 20:57 01/29/25 20:45 01/29/25 20:57 01/29/25 20:45 01/29/25 20:45 01/29/25 20:45 Results Labs 01/29/25 08:25 01/29/25 09:19 Labs: Short CBC 01/29/25 Range/Units 08:25 WBC 12.5 H (3.6-11.0) Thou/mm3 Hgb 15.7 (12.0-16.0) g/dL Hct 49.5 H (36.0-46.0) % Plt Count 110 L (140-440) Thou/mm3 BMP 01/29/25 09:19 Sodium 143 Potassium 4.2 Chloride 105 Carbon Dioxide 29.7 BUN 7 L Creatinine 0.7 Glucose 167 H Calcium 9.1 Cardiac Enzymes 01/29/25 Range/Units 09:19 Troponin I < 0.002 (0.0-0.045) ng/mL Liver Function 01/29/25 Range/Units 09:19 Total Bilirubin 0.4 (0.3-1.2) mg/dL AST 36 H (0-34) U/L ALT 19 (10-49) U/L Alkaline Phosphatase 69 (46-116) U/L Albumin 4.9 (3.5-5.0) gm/dL Urine 01/29/25 Range/Units 08:47 Urine Color Lt-Yellow (Lt Yel-Yel) Urine Clarity Clear (Clear/Hazy) Urine pH 6.0 (5.0-7.0) Ur Specific [place] 1.012 (1.001-1.035) Urine Protein Negative (Neg - Trace) Urine Glucose (UA) Negative (Negative)
[2025-01-30] VITALS (15 sets, daily range): BP systolic 116–168; BP diastolic 77–104; PULSE 61–146; RESP 18–20; TEMP 35.9–36.6; O2SAT 90–96
[2025-01-30] MEDS: HYDROcodone/APAP 5/325 TABLET 1 TAB PO ×3 (01:39→18:12)
[2025-01-30] MEDS: MORPHINE SULF INJ 4 MG/ML VIAL 2 MG IVP ×3 (04:17→19:50)
--- NOTE | 2025-01-30 04:20 | PC.NURSE ---
accessed pt's chart to assist main RN. Main RN on lunch.
[2025-01-30] MEDS: MORPHINE SULF INJ 4 MG/ML VIAL IVP (05:16)
[2025-01-30] MEDS: METOCLOPRAMIDE INJ 5 MG/ML VIAL 2 ML 10 MG IVP (05:16)
[2025-01-30] MEDS: LEVOTHYROXINE SODIUM 25 MCG TABLET 50 MCG PO (05:17)
[2025-01-30 06:29] LABS: Basophils # (Auto) 0.1 Thou/mm3 (0.0-0.2); Basophils % (Auto) 1 % (0-2.5); Eosinophils # (Auto) 0.3 Thou/mm3 (0.0-0.5); Eosinophils % (Auto) 4 % (0-10); Hematocrit 49.2 % (36.0-46.0); Hemoglobin 15.5 g/dL (12.0-16.0); Immature Granulocytes Auto 0.02 Thou/mm3 (0.00-0.00); Lymphocytes # (Auto) 3.5 Thou/mm3 (1.0-4.8); Lymphocytes % (Auto) 41 % (10-50); Mean Corpuscular HGB Conc 31.5 g/dl (31.0-37.0); Mean Corpuscular Hemoglobin 30.3 pg (25.0-35.0); Mean Corpuscular Volume 96 fL (80-100); Monocytes # (Auto) 0.7 Thou/mm3 (0.0-0.8); Monocytes % (Auto) 9 % (0-12); Neutrophils # (Auto) 3.9 Thou/mm3 (1.8-7.7); Neutrophils % (Auto) 45 % (37-80); Nucleated Red Blood Cell # 0.00 Thou/mm3 (0.00-0.00); Nucleated Red Blood Cell % 0 /100 WBC (0); Platelet Count 127 Thou/mm3 (140-440); RDW Standard Deviation 45.8 fL (36.4-46.3); Red Blood Count 5.11 Miln/mm3 (4.00-5.20); White Blood Count 8.5 Thou/mm3 (3.6-11.0)
[2025-01-30 06:34] LABS: Alanine Aminotransferase 21 U/L (10-49); Albumin, Serum 4.7 gm/dL (3.5-5.0); Albumin/Globulin Ratio 3.1 (1.2-2.2); Alkaline Phosphatase 59 U/L (46-116); Anion Gap 9 (7-16); Aspartate Amino Transferase 46 U/L (0-34); BUN/Creatinine Ratio 8 Ratio (12-20); Bilirubin,Total 0.5 mg/dL (0.3-1.2); Blood Urea Nitrogen < 5 mg/dL (9-23); Calcium 9.0 mg/dL (8.3-10.6); Calcium (Corrected) 9.0 mg/dL (8.5-10.1); Carbon Dioxide 31.3 mMol/L (20.0-31.0); Cardiac Risk Estimate 4.1 RATIO (3.7-5.6); Chloride 104 mMol/L (98-107); Cholesterol 118 mg/dL (132-200); Creatinine (Component) 0.6 mg/dL (0.6-1.3); Estimated Creatinine Clearance 108.7 mL/min (>60); Globulin 1.5 gm/dL (2.3-3.5); Glucose 93 mg/dL (74-106); HDL Cholesterol 29 mg/dL (40-60); LDL Cholesterol,Calculated 64 mg/dL (0-130); Magnesium 1.7 mg/dL (1.6-2.6); Osmolality,Calculated 284 (275-295); Phosphorous 4.0 mg/dL (2.4-5.1); Potassium 3.7 mMol/L (3.4-5.1); Sodium 144 mMol/L (136-145); Thyroid Stimulating Hormone 11.70 uIU/mL (0.55-4.78); Total Protein 6.2 gm/dL (5.7-8.2); Triglycerides 125 mg/dL (30-150); eGFR > 60 See Note
[2025-01-30 06:43] LABS: Glucose Estimated Average 171 mg/dL (80-131); Hemoglobin A1C 7.6 % Hgb (4.8-6.0)
[2025-01-30] MEDS: DULoxetine HCL 30 MG CAPSULE 60 MG PO (08:07)
[2025-01-30] MEDS: METOPROLOL TARTRATE 25 MG TABLET 100 MG PO ×2 (08:07→20:04)
[2025-01-30 08:39] LABS: Free T4 (Free Thyroxine) 0.92 ng/dL (0.89-1.76)
[2025-01-30] MEDS: NICOTINE PATCH 21 MG/24 HR PATCH.TD24 TOP (10:01)
[2025-01-30] MEDS: PROMETHAZINE INJ 12.5 MG in SODIUM CHLORIDE 0.9% 50 ML 2.5 MG IV (10:17)
[2025-01-30] MEDS: INSULIN LISPRO (AdmeLOG) 1 UNIT/0.01 ML UNIT SC (11:43)
--- NOTE | 2025-01-30 12:48 | PC.SS ---
Patient Cristel Craven is a 49 Year old male admitted for GI Bleed. SS met with patient at bedside to verify demographic information and discuss discharge plan. Patient reports she lives at home with family. Patient reports he daughterJessica is surrogate decision maker, [phone]. Patient is able to complete minimal assist with her ADL's, she reports her daughter is her [facility] provider. Patient reports he utilizes a cane and Rollator walker to assist with ambulation. Patient reports he utilizes home 02 at 2-3L mostly at night or as needed. Pharmacy of choice is [facility]. PCP is Caroline Gil. At time of discharge patient will return home. Family will provide transportation. Discharge plan: Home Next of kin: DaughterJessica
--- NOTE | 2025-01-30 13:07 | ESPR_ITS ---
<Statement entered by Torsten Rios MD - 01/30/25 15:18> I saw and examined patient personally and supervised PGY 1 resident, Dr. Henao with formulating a management plan. I agree with the documentation with the exceptions as listed below. Patient was admitted for hematochezia having bright red blood per rectum for the past few days. This morning she was hypotensive with SBP's 150s/160s. On metoprolol 100 mg p.o. twice daily her home medication. She might be nicotine withdrawal and was started on nicotine patch. She had an episode of nausea this morning refractory to metoclopramide and was given a dose of promethazine 12.5 mg IV x 1. Currently undergoing GoLytely bowel preparation for colonoscopy once cleared. Plan of care discussed with Attending Dr. Deirdre Rios MD PGY 2 Disclaimer: This note was dictated by speech recognition. Minor errors in locomotive engineer may be present due to voice recognition software. Documentation for date of: 01/30/25 Subjective Subjective Interval history: The patient presented with several days of hematochezia, characterized by bright red rectal bleeding. Earlier today, she experienced hypertension, with systolic blood pressures in the 150s to 160s. She remains on her home regimen of metoprolol 100 mg orally twice daily. Due to concerns for possible nicotine withdrawal, a nicotine patch was initiated. This morning, she had a bout of nausea that did not respond to metoclopramide, so a single 12.5 mg IV dose of promethazine was administered. She is currently undergoing bowel prep with GoLytely in anticipation of a colonoscopy once medically cleared. Exam Vital Signs Temp Pulse Resp BP Pulse Ox O2 Del Method O2 Flow Rate 97.2 F 90 18 168/94 H 95 Nasal Cannula 2 01/30/25 11:43 01/30/25 11:43 01/30/25 11:43 01/30/25 11:43 01/30/25 11:43 01/30/25 11:43 01/30/25 11:43 Narrative Exam GENERAL APPEARANCE: AOx3. NAD, activity normal for age, well developed/ well nourished, no cyanosis, pallor, or diaphoresis. HEENT: Normocephalic atraumatic, no facial trauma, neck is supple. Lids/conjunctiva normal. Mucous membranes moist, nares normal, lips/teeth normal uvula midline without oral pharyngeal erythema, exudate or swelling TMs normal bilaterally. No lymphangitis/lymphedema. CARDIAC: Regular rate and rhythm, S1+S2 heard. No murmurs, rubs, or gallops noted RESPIRATORY: respiratory effort normal, speaks in full sentences, no tripod position, no accessory muscle use. Lungs clear to auscultation without rhonchi, wheezes, rales ABDOMINAL: NBS. Soft, ND/NT. No evidence of fluid wave. No pulsatile masses on exam, rebound tenderness, Bradford sign or pain over Mcburney's point. MUSCLES/EXTREMITIES: No abnormal range of motion, no swelling. DERM: Warm, pink and dry. No rashes, dermatoses, petechiae or lesions. NEUROLOGICAL: Speech is clear and appropriate. Normal level of consciousness. Gait and coordination are normal. 5/5 strength in all extremities. PSYCH: Normal mood and affect. Judgement/competence is appropriate RECTAL: Skin tags, possibly hemorrhoids, no evidence of active bleeding, both sides of the anus were stained light pink with blood, no oozing noted. Objective Labs 01/31/25 05:05 01/31/25 05:05 Labs: Laboratory Results - last 24 hr 01/29/25 01/30/25 14:05 05:05 WBC 8.5 RBC 5.11 Hgb 15.5 Hct 49.2 H MCV 96 MCH 30.3 MCHC 31.5 RDW Std Deviation 45.8 Plt Count 127 L Neut % (Auto) 45 Lymph % (Auto) 41 [place] % (Auto) 9 Eos % (Auto) 4 Baso % (Auto) 1 Neut # (Auto) 3.9 Lymph # (Auto) 3.5 [place] # (Auto) 0.7 Eos # (Auto) 0.3 Baso # (Auto) 0.1 Immature Gran # (Auto) 0.02 H Absolute Nucleated RBC 0.00 Immature Gran % 0 Nucleated RBC % 0 Sodium 144 Potassium 3.7 D Chloride 104 Carbon Dioxide 31.3 H Anion Gap 9 BUN < 5 L Creatinine 0.6 Estim Creat Clear Calc 108.7 eGFR > 60 BUN/Creatinine Ratio 8 L Glucose [address] Glu mg/dL 171 H Hemoglobin A1c 7.6 H Calculated Osmolality 284 Calcium 9.0 Corrected Calcium 9.0 Phosphorus 4.0 Magnesium 1.7 Total Bilirubin 0.5 AST 46 H ALT 21 Alkaline Phosphatase 59 Total Protein 6.2 Albumin 4.7 Globulin 1.5 L Albumin/Globulin Ratio 3.1 H Triglycerides 125 Cholesterol 118 L LDL Cholesterol, Calc 64 HDL Cholesterol 29 L Cholesterol/HDL Ratio 4.1 TSH 11.70 H Free T4 0.92 Blood Type O Positive Antibody Screen NEGATIVE Blood Bank Wristband ID Yes Quality Measures Quality Measures VTE prophylaxis Assessment & Plan Assessment Current Active Medications: Generic Name Dose Route Start Last Admin Trade Name Freq PRN Reason Stop Dose Admin Acetaminophen 650 mg 01/29/25 17:06 Acetaminophen 325 Mg Tablet PO 02/28/25 17:05 Q6H PRN Fever >100.4 or pain 1-3 Hydrocodone Bitart/Acetaminophen 1 tab 01/29/25 17:06 01/30/25 09:20 Hydrocodone/Apap 5/325 Tablet PO 02/03/25 17:05 1 tab Q6HR PRN Administration PAIN SCALE 4-6 (Moderate Albuterol/Ipratropium 3 ml 01/30/25 00:49 Albuterol/Ipratropium (Duoneb) Rt Nessa 3 Ml Nebu INH 02/28/25 18:59 Q4HRRT PRN shortness of breath Atorvastatin Calcium 10 mg 01/29/25 21:00 01/29/25 20:57 Atorvastatin Calcium 10 Mg Tablet PO 02/28/25 20:59 10 mg HS VANESA Administration Dextrose 25 ml 01/30/25 08:51 Dextrose 50%-Water Inj 50 Ml Syringe IV 03/01/25 08:50 Q15MIN PRN BG 50-70 responsive npo pt Dextrose 50 ml 01/30/25 08:51 Dextrose 50%-Water Inj 50 Ml Syringe IV 03/01/25 08:50 Q15MIN PRN BG <50 OR BG <70 & pt unresponsive Duloxetine HCl 30 mg 01/29/25 21:00 01/29/25 20:58 Duloxetine Hcl 30 Mg Capsule PO 02/28/25 20:59 30 mg QPM VANESA Administration Duloxetine HCl 60 mg 01/30/25 09:00 01/30/25 08:07 Duloxetine Hcl 30 Mg Capsule PO 03/01/25 08:59 60 mg QAM VANESA Administration Glucagon 1 mg 01/30/25 08:51 Glucagon Inj 1 Mg Vial IM Q15MIN PRN BG <70, and no IV access Lactated Ringer's 1,000 mls @ 75 mls/hr 01/29/25 17:15 01/29/25 22:13 Lactated Ringers IV 01/30/25 19:54 75 mls/hr .[id number] VANESA Administration Insulin Human Lispro 0 unit 01/30/25 12:00 01/30/25 11:43 Insulin Lispro (Admelog) 1 Unit/0.01 Ml Unit SC 03/01/25 11:59 2 unit Q6HR VANESA Administration Protocol Levothyroxine Sodium 50 mcg 01/29/25 17:45 01/30/25 05:17 Levothyroxine Sodium 25 Mcg Tablet PO 02/28/25 17:44 50 mcg ACBR VANESA Administration Lorazepam 1 mg 01/29/25 17:50 01/30/25 10:18 Lorazepam 0.5 Mg Tablet PO 02/03/25 17:49 1 mg Q8H PRN Administration ANXIETY Metoclopramide HCl 10 mg 01/30/25 01:59 01/30/25 05:16 Metoclopramide Inj 5 Mg/Ml Vial 2 Ml IVP 03/01/25 01:58 10 mg Q6HR PRN Administration NAUSEA OR VOMITING Protocol Metoprolol Tartrate 100 mg 01/29/25 21:00 01/30/25 08:07 Metoprolol Tartrate 25 Mg Tablet PO 02/28/25 20:59 100 mg BID VANESA Administration Morphine Sulfate 2 mg 01/29/25 17:06 01/30/25 12:51 Morphine Sulf Inj 4 Mg/Ml Vial IVP 02/03/25 17:05 2 mg Q6HR PRN Administration PAIN SCALE 7-10 (Severe Nicotine 21 mg 01/30/25 10:00 01/30/25 10:01 Nicotine Patch 21 Mg/24 Hr Patch.Td24 TOP 03/01/25 09:59 21 mg QDAY VANESA Administration Pantoprazole Sodium 40 mg 01/29/25 21:00 01/30/25 08:07 Pantoprazole Inj 40 Mg Vial IVP 02/28/25 20:59 40 mg BID VANESA Administration Quetiapine Fumarate 200 mg 01/30/25 21:00 Quetiapine Fumarate 100 Mg Tablet PO 03/01/25 20:59 HS VANESA Sennosides 1 tab 01/29/25 17:06 Senna Tablet PO 02/28/25 17:05 QDAY PRN constipation Protocol Plan 49yo female with a history of SLE, RA, fibromyalgia, Amalia's, COPD, asthma, anxiety presents to the Emergency Department for complaints of chest pain and bloody streaks per rectum post stool. #GI Bleed for investigation #Hematochezia #Intractable naseua #Thrombocytopenia #Leukocytosis Patient reports active bloody streaks per rectum on toilet paper for last week. Initially, she unknowingly stooled herself and found too much bright red blood in the mess. Labs were unremarkable. Her hemoglobin is borderline elevated 15.7. Reports 2-3 loose stools per day and wiping multiple times with 2-ply toilet paper. Patient does not have any signs of itching or irritation. Skin tags seen on exam. Patient most likely has internal hemorrhoids that she incessantly wiped at, and in combination with her borderline thrombocytopenia and mild leukocytosis and now presenting with bright red blood per her rectum. Plan: -s/p IV promethazine 12.5 mg x 1 given for nausea refractory to Reglan -Pending EGD -Protonix 40 mg IV BID -GI consulted appreciate recs #COPD #Asthma #Nicotine Dependence Disorder Past medical history of COPD given 30 pack year history of smoking, and still actively smoking. Denied wheezing and non appreciated during physical exam. Home medication in Albuterol and Tiotroprium. Plan: -Started on nicotine patch -Duonebs Q4HRRT #Fibromyalgia #RA #SLE (no flare ups for years) Patient presents to ED multiple times with left arm and chest pain, with conflicting story saying it is just like her fibromyalgia pain and other times that it is nothing like her fibromyalgia pain. Plan: -[place] 5mg PO Q6HR PRN #Hypertension Per patient history past medical history of HTN, with home mediation of Metoprolol tartrate 100 mg PO BID Plan: -Metoprolol Tartate 100mg PO BID #Hypothyroidism #Amalia's Patient has a past medical history of hypothyroidism and currently Levothyroxine 50 mcg before meals. Dx: -01/30/25 TSH this admission elevated at 11.70 Rx: -TSH AM Draw -Levothyroxine 50mcg #Hypercholesterolemia Concern as patient has taken Rosuvastatin and Atorvastatin, upon discharge D/C Rosuvastatin. Plan: -Atorvastatin 10mg PO HS -Lipid Panel AM #Anxiety Past medical history of anxiety and possible illness depression. Plan: -Quetiiapine 200 mg PO HS -Ativan 1 mg PO Q8HR PRN Health Maintenance: Code status: Full DVT prophylaxis: SCD GI prophylaxis: Protonix IV Diet: NPO Dent: None Lines: PIV Supplemental O2: NC Disposition: Med tele Patient seen and reviewed with attending, Dr. Gilmore, and supervising resident, Dr. Rios. Eugenio Henao DO Internal Medicine, PGY-1 Attending Provider Attestation/Addendum I have discussed and was present for the essential components of the history, physical examination, diagnosis, and treatment plan with the resident. I agree with the patient's care as documented by the resident and amended herein by me. Alfredo Gilmore DO. Although this document has been carefully reviewed, there may still be some phonetic and other typographical errors. These errors are purely grammatical due to imperfections in the software program and should not be construed in any way to compromise the substance of the patient's medical care during this visit.
--- NOTE | 2025-01-30 14:17 | PC.SS ---
SS follow up note; EGD and Colonoscopy pending. Patient will discharge back home when medically cleared.
--- NOTE | 2025-01-30 19:37 | PD.IMPROG ---
Documentation for date of: 01/30/25 Subjective Subjective Interval history: Patient evaluated she was scheduled for a colonoscopy but she is not clear Additional GoLytely and procedure will be done once patient is clear for tomorrow Exam Vital Signs Temp Pulse Resp BP Pulse Ox O2 Del Method O2 Flow Rate 97.2 F 85 18 150/88 H 95 Nasal Cannula 2 01/30/25 15:34 01/30/25 16:00 01/30/25 15:34 01/30/25 15:34 01/30/25 15:34 01/30/25 15:34 01/30/25 15:34 Objective Labs 01/30/25 05:05 01/30/25 05:05 Labs: Laboratory Results - last 24 hr 01/30/25 05:05 WBC 8.5 RBC 5.11 Hgb 15.5 Hct 49.2 H MCV 96 MCH 30.3 MCHC 31.5 RDW Std Deviation 45.8 Plt Count 127 L Neut % (Auto) 45 Lymph % (Auto) 41 [place] % (Auto) 9 Eos % (Auto) 4 Baso % (Auto) 1 Neut # (Auto) 3.9 Lymph # (Auto) 3.5 [place] # (Auto) 0.7 Eos # (Auto) 0.3 Baso # (Auto) 0.1 Immature Gran # (Auto) 0.02 H Absolute Nucleated RBC 0.00 Immature Gran % 0 Nucleated RBC % 0 Sodium 144 Potassium 3.7 D Chloride 104 Carbon Dioxide 31.3 H Anion Gap 9 BUN < 5 L Creatinine 0.6 Estim Creat Clear Calc 108.7 eGFR > 60 BUN/Creatinine Ratio 8 L Glucose [address] Glu mg/dL 171 H Hemoglobin A1c 7.6 H Calculated Osmolality 284 Calcium 9.0 Corrected Calcium 9.0 Phosphorus 4.0 Magnesium 1.7 Total Bilirubin 0.5 AST 46 H ALT 21 Alkaline Phosphatase 59 Total Protein 6.2 Albumin 4.7 Globulin 1.5 L Albumin/Globulin Ratio 3.1 H Triglycerides 125 Cholesterol 118 L LDL Cholesterol, Calc 64 HDL Cholesterol 29 L Cholesterol/HDL Ratio 4.1 TSH 11.70 H Free T4 0.92 Impressions Impression: # Hematochezia Additional GoLytely Colonoscopy postponed to tomorrow Assessment & Plan Time Spent With Patient Time: Total time spent is greater than 50% in coordination of care (as documented) at patient's floor/unit and/or counseling patient:
[2025-01-30] MEDS: DULoxetine HCL 30 MG CAPSULE PO (20:03)
[2025-01-30] MEDS: ATORVASTATIN CALCIUM 10 MG TABLET PO (20:04)
--- NOTE | 2025-01-30 20:21 | PC.NURSE ---
pt requested her estradiol 2 mg pill and stated that this is the sencond night she does not take it. Dr. Ray was made aware, Per MD they will hold the order for tonight and wait for day team to restart it.
[2025-01-30 21:32] LABS: Amphetamine/Methamp Scrn,U Negative (Negative); Barbiturate Screen,Urine Negative (Negative); Benzodiazepines Screen,Urine Negative (Negative); Benzoylecgonine Screen, Ur Negative (Negative); Fentanyl Screen,Urine Negative (Negative); Opiate Screen,Urine Positive (Negative); THC Screen,Urine Negative (Negative)
[2025-01-31] VITALS (19 sets, daily range): BP systolic 94–162; BP diastolic 56–99; PULSE 62–82; RESP 12–20; TEMP 36.1–36.6; O2SAT 90–95
[2025-01-31] MEDS: METOCLOPRAMIDE INJ 5 MG/ML VIAL 2 ML 10 MG IVP ×3 (00:21→14:05)
[2025-01-31] MEDS: NA SU/NAHCO3/KC/PEG (Golytely) 4,000 ML BTL 4000 ML PO (02:18)
[2025-01-31 06:04] LABS: Basophils # (Auto) 0.1 Thou/mm3 (0.0-0.2); Basophils % (Auto) 1 % (0-2.5); Eosinophils # (Auto) 0.3 Thou/mm3 (0.0-0.5); Eosinophils % (Auto) 4 % (0-10); Hematocrit 47.4 % (36.0-46.0); Hemoglobin 15.1 g/dL (12.0-16.0); Immature Granulocytes Auto 0.02 Thou/mm3 (0.00-0.00); Lymphocytes # (Auto) 2.7 Thou/mm3 (1.0-4.8); Lymphocytes % (Auto) 38 % (10-50); Mean Corpuscular HGB Conc 31.9 g/dl (31.0-37.0); Mean Corpuscular Hemoglobin 30.4 pg (25.0-35.0); Mean Corpuscular Volume 95 fL (80-100); Monocytes # (Auto) 0.6 Thou/mm3 (0.0-0.8); Monocytes % (Auto) 9 % (0-12); Neutrophils # (Auto) 3.4 Thou/mm3 (1.8-7.7); Neutrophils % (Auto) 49 % (37-80); Nucleated Red Blood Cell # 0.00 Thou/mm3 (0.00-0.00); Nucleated Red Blood Cell % 0 /100 WBC (0); Platelet Count 123 Thou/mm3 (140-440); RDW Standard Deviation 44.5 fL (36.4-46.3); Red Blood Count 4.97 Miln/mm3 (4.00-5.20); White Blood Count 7.1 Thou/mm3 (3.6-11.0)
[2025-01-31] MEDS: LEVOTHYROXINE SODIUM 25 MCG TABLET 50 MCG PO (06:14)
[2025-01-31 06:24] LABS: Alanine Aminotransferase 20 U/L (10-49); Albumin, Serum 4.3 gm/dL (3.5-5.0); Albumin/Globulin Ratio 2.9 (1.2-2.2); Alkaline Phosphatase 57 U/L (46-116); Anion Gap 8 (7-16); Aspartate Amino Transferase 44 U/L (0-34); BUN/Creatinine Ratio 10 Ratio (12-20); Bilirubin,Total 0.5 mg/dL (0.3-1.2); Blood Urea Nitrogen < 5 mg/dL (9-23); Calcium 8.9 mg/dL (8.3-10.6); Calcium (Corrected) 8.9 mg/dL (8.5-10.1); Carbon Dioxide 30.1 mMol/L (20.0-31.0); Chloride 107 mMol/L (98-107); Creatinine (Component) 0.5 mg/dL (0.6-1.3); Estimated Creatinine Clearance 130.4 mL/min (>60); Globulin 1.5 gm/dL (2.3-3.5); Glucose 114 mg/dL (74-106); Magnesium 1.7 mg/dL (1.6-2.6); Osmolality,Calculated 286 (275-295); Phosphorous 3.2 mg/dL (2.4-5.1); Potassium 3.6 mMol/L (3.4-5.1); Sodium 145 mMol/L (136-145); Total Protein 5.8 gm/dL (5.7-8.2); eGFR > 60 See Note
[2025-01-31] MEDS: NICOTINE PATCH 21 MG/24 HR PATCH.TD24 TOP (08:22)
[2025-01-31] MEDS: Magnesium Sulfate 4 GM Ivpb 4 GM/50 ML BAG IV (08:22)
[2025-01-31] MEDS: POTASSIUM CHL 10 mEq IVPB 10 MEQ/100 ML BAG 75 MEQ IV ×3 (08:22→14:05)
[2025-01-31] MEDS: DULoxetine HCL 30 MG CAPSULE 60 MG PO (08:24)
[2025-01-31] MEDS: METOPROLOL TARTRATE 25 MG TABLET 100 MG PO (08:25)
--- NOTE | 2025-01-31 08:55 | PD.RESPRO ---
Documentation for date of: 01/31/25 --------- No overnight events. Patient is alert and orientated x3. Patient is pending colonoscopy with gastroenterology for hematochezia and concern for lower GI bleed. Blood cultures pending. - The patient's plan was discussed with attending Dr. Deirdre Galicia MD PGY2 Internal Medicine Subjective Subjective Interval history: Patient examined bedside, labs reviewed. Was not successful with GoLytely prep yesterday, attempting again today. Patient states anal bleeding has been slowing down some blood on her pad but it is not soaking through. She has ongoing nausea but no vomiting, the promethazine is helping her. Plan for colonoscopy tonight. Exam Vital Signs Temp Pulse Resp BP Pulse Ox O2 Del Method O2 Flow Rate 97.2 F 79 19 154/87 H 90 L Nasal Cannula 4 01/31/25 08:00 01/31/25 08:25 01/31/25 08:00 01/31/25 08:25 01/31/25 08:00 01/31/25 08:00 01/31/25 08:00 Narrative Exam GENERAL APPEARANCE: AOx3. NAD, activity normal for age, well developed/ well nourished, no cyanosis, pallor, or diaphoresis. HEENT: Normocephalic atraumatic, no facial trauma, neck is supple. Lids/conjunctiva normal. Mucous membranes moist, nares normal, lips/teeth normal uvula midline without oral pharyngeal erythema, exudate or swelling TMs normal bilaterally. No lymphangitis/lymphedema. CARDIAC: Regular rate and rhythm, S1+S2 heard. No murmurs, rubs, or gallops noted RESPIRATORY: respiratory effort normal, speaks in full sentences, no tripod position, no accessory muscle use. Lungs clear to auscultation without rhonchi, wheezes, rales ABDOMINAL: NBS. Soft, ND/NT. No evidence of fluid wave. No pulsatile masses on exam, rebound tenderness, Bradford sign or pain over Mcburney's point. MUSCLES/EXTREMITIES: No abnormal range of motion, no swelling. DERM: Warm, pink and dry. No rashes, dermatoses, petechiae or lesions. NEUROLOGICAL: Speech is clear and appropriate. Normal level of consciousness. Gait and coordination are normal. 5/5 strength in all extremities. PSYCH: Normal mood and affect. Judgement/competence is appropriate RECTAL: Declined rectal exam today Objective Labs 01/31/25 05:05 01/31/25 05:05 Labs: Laboratory Results - last 24 hr 01/30/25 01/31/25 20:40 05:05 WBC 7.1 RBC 4.97 Hgb 15.1 Hct 47.4 H MCV 95 MCH 30.4 MCHC 31.9 RDW Std Deviation 44.5 Plt Count 123 L Neut % (Auto) 49 Lymph % (Auto) 38 [place] % (Auto) 9 Eos % (Auto) 4 Baso % (Auto) 1 Neut # (Auto) 3.4 Lymph # (Auto) 2.7 [place] # (Auto) 0.6 Eos # (Auto) 0.3 Baso # (Auto) 0.1 Immature Gran # (Auto) 0.02 H Absolute Nucleated RBC 0.00 Immature Gran % 0 Nucleated RBC % 0 Sodium 145 Potassium 3.6 Chloride 107 Carbon Dioxide 30.1 Anion Gap 8 BUN < 5 L Creatinine 0.5 L Estim Creat Clear Calc 130.4 eGFR > 60 BUN/Creatinine Ratio 10 L Glucose 114 H Calculated Osmolality 286 Calcium 8.9 Corrected Calcium 8.9 Phosphorus 3.2 Magnesium 1.7 Total Bilirubin 0.5 AST 44 H ALT 20 Alkaline Phosphatase 57 Total Protein 5.8 Albumin 4.3 Globulin 1.5 L Albumin/Globulin Ratio 2.9 H Urine Opiates Screen Positive A Urine Fentanyl Screen Negative Ur Barbiturates Screen Negative U Amphetamin/Meth Scrn Negative U Benzodiazepines Scrn Negative U Cocaine Metab Screen Negative U Marijuana (THC) Screen Negative Quality Measures Quality Measures VTE prophylaxis Assessment & Plan Assessment Current Active Medications: Generic Name Dose Route Start Last Admin Trade Name Freq PRN Reason Stop Dose Admin Acetaminophen 650 mg 01/29/25 17:06 Acetaminophen 325 Mg Tablet PO 02/28/25 17:05 Q6H PRN Fever >100.4 or pain 1-3 Hydrocodone Bitart/Acetaminophen 1 tab 01/29/25 17:06 01/30/25 18:12 Hydrocodone/Apap 5/325 Tablet PO 02/03/25 17:05 1 tab Q6HR PRN Administration PAIN SCALE 4-6 (Moderate Albuterol/Ipratropium 3 ml 01/30/25 00:49 Albuterol/Ipratropium (Duoneb) Rt Nessa 3 Ml Nebu INH 02/28/25 18:59 Q4HRRT PRN shortness of breath Atorvastatin Calcium 10 mg 01/29/25 21:00 01/30/25 20:04 Atorvastatin Calcium 10 Mg Tablet PO 02/28/25 20:59 10 mg HS VANESA Administration Dextrose 25 ml 01/30/25 08:51 Dextrose 50%-Water Inj 50 Ml Syringe IV 03/01/25 08:50 Q15MIN PRN BG 50-70 responsive npo pt Dextrose 50 ml 01/30/25 08:51 Dextrose 50%-Water Inj 50 Ml Syringe IV 03/01/25 08:50 Q15MIN PRN BG <50 OR BG <70 & pt unresponsive Duloxetine HCl 30 mg 01/29/25 21:00 01/30/25 20:03 Duloxetine Hcl 30 Mg Capsule PO 02/28/25 20:59 30 mg QPM VANESA Administration Duloxetine HCl 60 mg 01/30/25 09:00 01/31/25 08:24 Duloxetine Hcl 30 Mg Capsule PO 03/01/25 08:59 60 mg QAM VANESA Administration Glucagon 1 mg 01/30/25 08:51 Glucagon Inj 1 Mg Vial IM Q15MIN PRN BG <70, and no IV access Hydralazine HCl 10 mg 01/30/25 13:42 Hydralazine Inj 20 Mg/Ml Vial IVP 03/01/25 13:41 Q6HR PRN Hypertension Potassium Chloride 10 meq in 100 mls @ 100 mls/hr 01/31/25 07:39 01/31/25 08:22 Kcl Ivpb IV 01/31/25 11:38 75 mls/hr Q1H VANESA Administration Magnesium Sulfate 4 gm in 50 mls @ 12.5 mls/hr 01/31/25 07:39 01/31/25 08:22 Magnesium Sulfate Ivpb IV 01/31/25 11:38 12.5 mls/hr X1 ONE Administration Insulin Human Lispro 0 unit 01/30/25 12:00 01/31/25 05:08 Insulin Lispro (Admelog) 1 Unit/0.01 Ml Unit SC 03/01/25 11:59 Not Given Q6HR VANESA Protocol Levothyroxine Sodium 50 mcg 01/29/25 17:45 01/31/25 06:14 Levothyroxine Sodium 25 Mcg Tablet PO 02/28/25 17:44 50 mcg ACBR VANESA Administration Lorazepam 1 mg 01/29/25 17:50 01/30/25 10:18 Lorazepam 0.5 Mg Tablet PO 02/03/25 17:49 1 mg Q8H PRN Administration ANXIETY Metoclopramide HCl 10 mg 01/30/25 01:59 01/31/25 08:24 Metoclopramide Inj 5 Mg/Ml Vial 2 Ml IVP 03/01/25 01:58 10 mg Q6HR PRN Administration NAUSEA OR VOMITING Protocol Metoprolol Tartrate 100 mg 01/29/25 21:00 01/31/25 08:25 Metoprolol Tartrate 25 Mg Tablet PO 02/28/25 20:59 100 mg BID VANESA Administration Morphine Sulfate 2 mg 01/29/25 17:06 01/30/25 12:51 Morphine Sulf Inj 4 Mg/Ml Vial IVP 02/03/25 17:05 2 mg Q6HR PRN Administration PAIN SCALE 7-10 (Severe Nicotine 21 mg 01/30/25 10:00 01/31/25 08:22 Nicotine Patch 21 Mg/24 Hr Patch.Td24 TOP 03/01/25 09:59 21 mg QDAY VANESA Administration Pantoprazole Sodium 40 mg 01/29/25 21:00 01/31/25 08:23 Pantoprazole Inj 40 Mg Vial IVP 02/28/25 20:59 40 mg BID VANESA Administration Quetiapine Fumarate 200 mg 01/30/25 21:00 01/30/25 20:04 Quetiapine Fumarate 100 Mg Tablet PO 03/01/25 20:59 200 mg HS VANESA Administration Sennosides 1 tab 01/29/25 17:06 Senna Tablet PO 02/28/25 17:05 QDAY PRN constipation Protocol Plan 49yo female with a history of SLE, RA, fibromyalgia, Amalia's, COPD, asthma, anxiety presents to the Emergency Department for complaints of chest pain and bloody streaks per rectum post stool. Plan for colonoscopy tonight. #GI Bleed for investigation #Hematochezia #Intractable naseua #Thrombocytopenia #Leukocytosis Patient reports active bloody streaks per rectum on toilet paper for last week. Initially, she unknowingly stooled herself and found too much bright red blood in the mess. Labs were unremarkable. Her hemoglobin is borderline elevated 15.7. Reports 2-3 loose stools per day and wiping multiple times with 2-ply toilet paper. Patient does not have any signs of itching or irritation. Skin tags seen on exam. Patient most likely has internal hemorrhoids that she incessantly wiped at, and in combination with her borderline thrombocytopenia and mild leukocytosis and now presenting with bright red blood per her rectum. Plan: -s/p IV promethazine 12.5 mg x 1 given for nausea refractory to Reglan -Pending colonoscopy -Protonix 40 mg IV BID -Blood cultures pending -GI consulted appreciate recs - Colonoscopy -Reglan 10mg IVP Q6HR PRN #History of COPD #Asthma #Nicotine Dependence Disorder Past medical history of COPD given 30 pack year history of smoking, and still actively smoking. Denied wheezing and non appreciated during physical exam. Home medication in Albuterol and Tiotroprium. Plan: -Started on nicotine patch -Duonebs Q4HRRT #Fibromyalgia #RA #SLE (no flare ups for years) Patient presents to ED multiple times with left arm and chest pain, with conflicting story saying it is just like her fibromyalgia pain and other times that it is nothing like her fibromyalgia pain. Plan: -[place] 5mg PO Q6HR PRN -Duloxetine 30mg QPM + 60mg QAM PO #Hypertension Per patient history past medical history of HTN, with home mediation of Metoprolol tartrate 100 mg PO BID Plan: -Metoprolol Tartate 100mg PO BID -Hydralazine 10mg IVP Q6HR PRN #history of Hypothyroidism #Amalia's Patient has a past medical history of hypothyroidism and currently Levothyroxine 50 mcg before meals. Dx: -01/30/25 TSH this admission elevated at 11.70 Rx: -TSH AM Draw -Levothyroxine 50mcg #history Hypercholesterolemia Concern as patient has taken Rosuvastatin and Atorvastatin, upon discharge D/C Rosuvastatin. Plan: -Atorvastatin 10mg PO HS -Lipid Panel AM #Anxiety Past medical history of anxiety and possible illness depression. Plan: -Seroquel 200 mg PO HS -Ativan 1 mg PO Q8HR PRN #Incidental finding on CT, mild to moderate hepatomegaly with fatty infiltrations. Health Maintenance: Code status: Full DVT prophylaxis: SCD GI prophylaxis: Protonix IV Diet: NPO Dent: None Lines: PIV Supplemental O2: NC Disposition: Med tele Patient seen and reviewed with attending, Dr. Gilmore, and supervising resident, Dr. Galicia. Beny Sun MD Internal Medicine, PGY-1 Attending Provider Attestation/Addendum I have discussed and was present for the essential components of the history, physical examination, diagnosis, and treatment plan with the resident. I agree with the patient's care as documented by the resident and amended herein by me. Alfredo Gilmore, DO. Although this document has been carefully reviewed, there may still be some phonetic and other typographical errors. These errors are purely grammatical due to imperfections in the software program and should not be construed in any way to compromise the substance of the patient's medical care during this visit. Patient seen and evaluated this AM. No acute events overnight, patient drinking GoLytely for colonoscopy to hopefully be performed today. Patient endorses her rectal bleeding has improved, likely DC tomorrow pending specialist recommendations and results of colonoscopy.
[2025-01-31] MEDS: MORPHINE SULF INJ 4 MG/ML VIAL 2 MG IVP ×2 (08:58→17:16)
[2025-01-31] MEDS: INSULIN LISPRO (AdmeLOG) 1 UNIT/0.01 ML UNIT SC (11:57)
--- NOTE | 2025-01-31 15:35 | PC.SS ---
Rounding note: Colonoscopy pending completion for today, 01/31/25. Discharging home when medically clear.
[2025-01-31] MEDS: LIDOCAINE JELLY 2% (Urojet) 10 ML TUBE TOP (15:57)
--- NOTE | 2025-01-31 17:20 | ESDS_ITS ---
Planned Discharge Date 01/31/25 DS: Providers Provider Date of admission: 01/29/25 17:06 Primary care physician: FANNY Yap Admitting Provider: Aditya Gilmore DO Attending Provider on Admission: Aditya Gilmore DO Consults: 01/29/25 20:13 Consult to Gastroenterology Stat Comment: Consulting Provider: Rashard Maharaj Attending Provider on DC: Ofelia Galicia MD Discharging Provider: Ofelia Galicia MD DS: Diagnosis Problem List Completed Was Problem List Reviewed/Reconciled?: Yes Hospital Course Hospital Course Hospital course: Summary: Patient is a 49-year-old female with a past medical history of hypertension, hyperlipidemia, pre-diabetes now diabetes mellitus type 2 [id number] (current A1c 7.6), COPD, current smoker, nicotine dependence, hypothyroidism, history of lupus and RA, fibromyalgia who presented to the emergency room on 01/28/2025 and [facility]2025 for lower GI bleed. Patient was subsequently found to have hemorrhoids grade 4 requiring band ligation. ER Course: Vitals: BP 132/93, HR 81, 22, temperature 91% on room air transition to 2 L oxygen WBC 9.7, erythrocytosis noted hemoglobin 16.1 hematocrit 50.3. Coagulation within normal limits. CMP: Sodium 141, potassium 4.1, chloride 107, bicarb 26.3 glucose 216 Troponin less than 0.002, EKG sinus rhythm UTOX positive for opioids CT abdomen pelvis: No bowel obstruction. Common bile duct 8 mm no definite stones with absent gallbladder Moderate hepatomegaly with fatty infiltration Medication lactated ringer maintenance pain medication morphine Hospital Course: During hospital course, patient was started on GoLytely for colonoscopy preparation under gastroenterology for hematochezia and concerns of lower GI bleed. Colonoscopy was performed on 01/31/2025 and noted to have hemorrhoids which required band ligation. During hospital course TSH was noted to be elevated 11.70 with a free T4 of 0.92 concern for sick euthyroid syndrome current dose levothyroxine 50 mcg please follow-up with labs and reevaluate current dose. Patient was also noted to have an elevated A1c of 7.6% and is a new diabetic mellitus type II patient. Patient was started on sliding scale inpatient and recommended patient continue metformin as an outpatient 500 mg once daily, please follow-up with primary care provider. #Hemorrhoids, Grade IV, s/p band ligation #lower GI bleed #Hematochezia #Intractable naseua #Thrombocytopenia #Leukocytosis, resolved. #history of COPD #History of Asthma #Nicotine Dependence Disorder #Current Smoker #Fibromyalgia #RA #SLE (per patient history in remission) #Hypertension #Hypothyroidism #Hypercholesterolemia #Anxiety #incidental Finding on CT Abdomen, Moderate hepatomegaly w/ fatty infiltration Instructions: -Please increase fiber intake in your diet as hemorrhoids were found on colonoscopy. Consider Sitz baths given band ligation. -Please follow up with gastroenterology, Dr. Maharaj, for your biopsy results within 2 weeks after discharge. -NEW medication metformin 500 mg once daily as your A1c 7.6%. Please follow up with your primary care provider for further adjustments. -Please take all other medication as prescribed. -Please follow up with your primary care provider within 1-2 weeks after discharge. -If your symptoms worsen,please seek immediate medical attention and return to your nearest emergency room -If you do not have a primary care provider, you may follow up at the [facility] at [address] [place] [address] . [address], [place] [address], - The patient's plan was discussed with attending Dr. Deirdre Galicia MD PGY2 Internal Medicine Time Spent with Patient Time attestation: Total time spent providing and/or coordinating discharge services: at least 30 minutes of care and coordination Time spent: Greater than 30 minutes Exam Vital Signs Temp Pulse Resp BP Pulse Ox O2 Del Method O2 Flow Rate 97.5 F 77 16 121/83 94 L Nasal Cannula 3 01/31/25 15:58 01/31/25 16:28 01/31/25 16:28 01/31/25 16:28 01/31/25 16:28 01/31/25 15:56 01/31/25 16:28 Narrative Exam General Appearance: Alert & Oriented X3, female who is lying in bed in no acute distress HEENT: Skull symmetrical and atraumatic. Conjunctivae pin and moist. Pupils equal, round, reactive to light and accommodation (PERRL). External ear without lesion or discharge. Straight, nares patient, mucosa pink, no discharge. No thyroid nodule appreciated. No cervical lymphadenopathy. Cardio: Normal Rate and Rhythm with S1 and S2 heart sounds. No murmurs or extra heart sounds auscultated. No bruits on carotid auscultation. No peripheral edema or cyanosis. Lungs: Symmetric with good expansion. Chest and back non-tender. Breath sounds vesicular without crackles, wheezing or rhonchi Abdomen: Non-tender, Non-distended, Normal Reactive Bowel Sounds Neuro: Alert, cooperative, oriented to person, place, and time. Speech clear. CN grossly intact. Upper motor strength 5/5 and Lower motor strength 5/5. Sensation intact. Discharge Plan Plan Patient Disposition: HOME (Self Care) Patient condition on transfer: Stable Care Plan Goals: Instructions: -Please increase fiber intake in your diet as hemorrhoids were found on colonoscopy. Consider Sitz baths given band ligation. -Please follow up with gastroenterology, Dr. Maharaj, for your biopsy results within 2 weeks after discharge. -NEW medication metformin 500 mg once daily as your A1c 7.6%. Please follow up with your primary care provider for further adjustments. -Please take all other medication as prescribed. -Please follow up with your primary care provider within 1-2 weeks after discharge. -If your symptoms worsen,please seek immediate medical attention and return to your nearest emergency room -If you do not have a primary care provider, you may follow up at the [facility] at [facility] [address], [place] [address], Phone Prescriptions/Referrals Prescriptions/Med Rec: New duloxetine 30 mg capsule,delayed release(DR/EC) 30 mg PO QDAY 60 Days Qty: 60 0RF metformin 500 mg tablet 500 mg PO QDAY 60 Days Qty: 60 0RF Continued quetiapine 300 mg tablet 200 mg PO HS folic acid 1 mg Tablet 1 mg PO HS lorazepam 1 mg Tablet 1 mg PO Q8H PRN (Reason: Anxiety) atorvastatin 10 mg Tablet 10 mg PO HS levothyroxine 75 mcg Tablet 50 mcg PO QMORNING methocarbamol 750 mg Tablet 750 mg PO BID pantoprazole 40 mg Tablet,Delayed Release (Dr/Ec) 40 mg PO QDAY metoprolol tartrate 50 mg tablet 100 mg PO BID leflunomide 20 mg tablet 20 mg PO QDAY Patient Comments: TAKE ONE TABLET BY MOUTH EVERY DAY RHEUMATOID ARTHRITIS fenofibrate 54 mg tablet 54 mg PO HS Patient Comments: TAKE ONE TABLET BY MOUTH EVERY DAY FOR CHOLESTEROL promethazine 25 mg Tablet 25 mg PO BID estradiol 2 mg tablet 2 mg PO HS Patient Comments: TAKE ONE TABLET BY MOUTH EVERY DAY rosuvastatin 20 mg tablet 20 mg PO HS Patient Comments: TAKE ONE TABLET BY MOUTH AT BEDTIME FOR CHOLESTEROL Discontinued hydrocodone bitartrate 10 mg capsule, oral only, ER 12hr 10 mg PO Q12H cetirizine 10 mg tablet 10 mg PO QDAY acetaminophen-codeine 300-60 mg Tablet 0.5 tab PO Q6H PRN (Reason: Pain) dexamethasone 6 mg tablet 6 mg PO QDAY Qty: 10 0RF amoxicillin 500 mg Capsule 500 mg PO Q8H duloxetine [Cymbalta] 30 mg Capsule,Delayed Release(Dr/Ec) 30 mg PO QPM duloxetine [Cymbalta] 60 mg Capsule,Delayed Release(Dr/Ec) 60 mg PO QAM tocilizumab 200 mg/10 mL (20 mg/mL) Solution 1 mg IV QMONTH Veozah 45 mg Tablet 45 mg PO QDAY benzonatate 100 mg Capsule 100 mg PO TID cyclobenzaprine 10 mg tablet 10 mg PO HS Qty: 10 0RF meloxicam 7.5 mg tablet 7.5 mg PO QDAY Qty: 10 0RF Referrals: Rashard Maharaj MD [Physician, Gastroenterology] Caroline Gil FNP [Primary Care Provider] Patient/Caregiver Discharge Instructions Education Materials: Bleeding Gastrointestinal, Understanding Hemorrhoids Print Language: [place] Stand Alone Forms: Valerie Award Info., Patient Portal Info Letter Discharge Order Discharge Orders: Discharge (Routine); Ordered 01/31/25 Ordered By: Ofelia Galicia Quality Discharge Quality Measures VTE prophylaxis (compression device given risk of bleeding ) Attestestation MD Attestation I have discussed and was present for the essential components of the discharge history, physical examination, diagnosis, and discharge treatment plan with the resident. I agree with the patient's discharge care as documented by the resident and amended herein by me. Alfredo Gilmore DO. The patient understood all discharge instructions, all questions were answered satisfactorily. The patient was instructed to return to the Emergency Department is symptoms worsened or persisted. Patient admitted for lower GI bleed, colonoscopy resulted in multiple hemorrhoids that required banding. Hemoglobin remained stable, the patient overall was stable for discharge was tolerating p.o. intake, ambulatory and afebrile prior to going home. Although this document has been carefully reviewed, there may still be some phonetic and other typographical errors. These errors are purely grammatical due to imperfections in the software program and should not be construed in any way to compromise the substance of the patient's medical care during this visit. Time Spent on discharge: 31 minutes
== END 2025-01-31 18:33 | disposition home or self-care (01) | DRG 226 ==
LOC: SERX 11:29 → SERHOLD 17:32 → S3NX 01-30 05:36 → SERHOLD 02-02 07:33 → S3NX 02-02 07:33
PROVIDERS: Nurse Practitioner Primary Care; Specialist; Admitting Provider Student in an Organized Health Care Education/Training Program; Emergency Provider Emergency Medicine; PCP Student in an Organized Health Care Education/Training Program; Visit Provider Student in an Organized Health Care Education/Training Program
PROC: 0DJD8ZZ Inspection of Lower Intestinal Tract, Via Natural or Artificial Opening Endoscopic (ICD-10-PCS; CPT 45378; principal; 2025-01-31 15:00)
DX: K64.3 Fourth degree hemorrhoids (principal); K92.1 Melena; I10 Essential (primary) hypertension; M79.7 Fibromyalgia; F41.9 Anxiety disorder, unspecified; M06.9 Rheumatoid arthritis, unspecified; J44.89 Other specified chronic obstructive pulmonary disease; D69.6 Thrombocytopenia, unspecified; M32.9 Systemic lupus erythematosus, unspecified; G89.4 Chronic pain syndrome; E06.3 Autoimmune thyroiditis; E11.9 Type 2 diabetes mellitus without complications; E78.00 Pure hypercholesterolemia, unspecified; Z79.890 Hormone replacement therapy; K76.0 Fatty (change of) liver, not elsewhere classified; I95.9 Hypotension, unspecified; F17.200 Nicotine dependence, unspecified, uncomplicated; Z79.84 Long term (current) use of oral hypoglycemic drugs; Z99.81 Dependence on supplemental oxygen; Z79.899 Other long term (current) drug therapy; Z88.8 Allergy status to other drugs, medicaments and biological substances
CPT/HCPCS: 36415; 71046; 74177; 80053; 80061; 80307; 81001; 81025; 83036; 83690; 83735; 83880; 83993; 84100; 84439; 84443; 84484; 85025; 85610; 85730; 86850; 86900; 86901; 87015; 87040; 87045; 87046; 87205; 87338; 87899; 93005; 93225; 94640; 94664; 94762; 96361; 96374; 96375; 96376; 99284; A4217; A4649; A9270; J1200; J1815; J2250; J2270; J2405; J2470; J2550; J2765; J3010; J3475; J3480; J7120; Q9967

== ENCOUNTER 2025-04-08 15:21 | Emergency (ER) | payer MEDICAID, SELFPAY ==
[2025-04-08 15:22] VITALS: PULSE 113; O2SAT 94; BMI 26.9
[2025-04-08 15:23] VITALS: BP 130/94; PULSE 117; RESP 22; TEMP 37.2; O2SAT 95
--- NOTE | 2025-04-08 15:27 | XR_ITS ---
Study: Chest 1 view. INDICATION: Short of breath this day. FINDINGS: A portable semiupright chest radiograph at 1543 hours 08 April 2025 I demonstrates fully expanded lungs free from alveolar infiltrates and nodules. There are no effusions. The heart is normal in size and contour. Superior mediastinal structures are narrow and peripheral vessels are normal in distribution. An injection port in the left chest terminates in the mid superior vena cava. IMPRESSION: 1. No acute diagnostic abnormality. 2. No significant change from 29 January 2025.
--- NOTE | 2025-04-08 15:27 | EKG_ITS ---
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
--- NOTE | 2025-04-08 15:29 | PD.EDADULT ---
ED General RME/HPI General Chief complaint: Shortness of Breath/Dyspnea Stated complaint: SOB Time Seen by Provider: 04/08/25 15:27 Arrival date/time: 04/08/25 15:21 CC: Cough wheezing shortness of breath HPI ongoing for past 45 minutes. The patient has a history of COPD continues to smoke is on 3 L nasal cannula at home. Is taking immunosuppressants for her RA. Patient smokes approximately half to 1 pack a day. Patient had abrupt onset after talking while sitting at the couch. Patient is already been prescribed amoxicillin for a pneumonia diagnosed by her PCP several days ago. Patient denies fever chills nausea vomiting headache. EMS report tachycardia with mild hypertension and route SVN gave the patient some relief. Related Data Home Medications ?Medication ?Instructions ?Recorded ?Confirmed atorvastatin 10 mg tablet 10 mg PO HS 01/20/19 01/29/25 levothyroxine 75 mcg tablet 50 mcg PO QMORNING 01/20/19 01/29/25 methocarbamol 750 mg tablet 750 mg PO BID 01/20/19 01/29/25 pantoprazole 40 mg tablet,delayed 40 mg PO QDAY 01/20/19 01/29/25 release folic acid 1 mg tablet 1 mg PO HS 12/19/19 01/29/25 lorazepam 1 mg tablet 1 mg PO Q8H PRN Anxiety 12/19/19 01/29/25 metoprolol tartrate 50 mg tablet 100 mg PO BID 11/03/20 01/29/25 leflunomide 20 mg tablet 20 mg PO QDAY 05/10/22 01/29/25 fenofibrate 54 mg tablet 54 mg PO HS 10/25/22 01/29/25 quetiapine 300 mg tablet 200 mg PO HS 11/13/22 01/29/25 promethazine 25 mg tablet 25 mg PO BID 12/18/22 01/29/25 estradiol 2 mg tablet 2 mg PO HS 01/29/25 01/29/25 rosuvastatin 20 mg tablet 20 mg PO HS 01/29/25 01/29/25 Previous Rx's ?Medication ?Instructions ?Recorded prednisone 20 mg tablet See Taper PO BID 3 days #6 tabs 04/08/25 Allergies Allergy/AdvReac Type Severity Reaction Status Date / Time infliximab (From Remicade) Allergy Severe Difficulty Verified 04/08/25 15:30 Breathing ondansetron AdvReac Severe SEVERE Verified 04/08/25 15:30 MIGRAINE tramadol AdvReac Severe ALTERS Verified 04/08/25 15:30 MOOD, CAUSES ANGER AND IRRITATION Review of Systems Review of Systems Narrative Review of Systems: GEN: No fever, no chills, no weight loss EYES: No discharge, no visual changes, no pain HEENT: No ear pain, no congestion, no sore throat PULM: + shortness of breath, + cough, no congestion CV: No chest pain, no dyspnea on exertion, no palpitations GI: No nausea, no vomiting, no diarrhea, no pain, no constipation : No frequency, no urgency, no dysuria MUSC/SKEL: No joint pain, no back pain SKIN: No rash PSYCH: No hallucinations, no depression HEME/LYMPH: No easy bleeding or bruising tendencies NEURO: No weakness, no headache Past Medical History Past Medical History NEUROLOGIC: Positive Neurological Disorders, Migraine and Spinal Cord Injury; Negative Cerebrovascular Accident, Transient Ischemic Attacks (TIA), Dementia, Alzheimer's Disease, Parkinson's Disease, Brain Tumor, Meningitis, Seizures, Epilepsy, Multiple Sclerosis, Cerebral Palsy, Amyotrophic Lateral Sclerosis (ALS/Sandy Gehrig's), Guillain-[place] Syndrome, Spina Bifida, Paralysis, Peripheral Neuropathy, Carvajal's Palsy, Subdural Hematoma, Head Trauma or Traumatic Brain Injury CARDIAC: Positive Cardiac Disorders, Angina, Hypercholesterolemia and Hypertension; Negative Myocardial Infarction, Cardiac Arrhythmia, Atrial Fibrillation, Heart Murmur, Coronary Artery Disease, Atherosclerotic Heart Disease, Peripheral Vascular Disease, Aneurysm, Congestive Heart Failure, Congenital Heart Disease, Valvular Heart Disease, Rheumatic Fever, Cardiomyopathy, Edema, Pericarditis, Cellulitis, Deep Vein Thrombosis, Hypotension or Varicose Veins RESPIRATORY: Positive Chronic Obstructive Pulmonary Disease (COPD), Asthma, Pneumonia, Sleep Apnea, Cough and Tobacco Use; Negative Bronchitis, Emphysema, Pulmonary Fibrosis, Cystic Fibrosis, Tuberculosis or Pulmonary Edema GASTROINTESTINAL: Positive Gastrointestinal Disorders, Pancreatitis, Gastrointestinal Bleed, Esophageal Varices, Ulcer, Irritable Bowel, Hiatal Hernia, Hemorrhoids, Gastroesophageal Reflux Disease and Obesity; Negative Hepatitis, Cirrhosis, Celiac Disease, Gall Bladder Disease, Campbell's Esophagus, Colitis, Ulcerative Colitis, Diverticulitis, Diverticulosis, Colorectal Cancer, Crohn's Disease or Obstructive Bowel GENITOURINARY: Negative Genitourinary Disorders, Renal Disease, Kidney Stones, Polycystic Kidney Disease, Neurogenic Bladder, Inguinal Hernia or Dialysis REPRODUCTIVE: Positive Previous Pregnancies; Negative Breast Cancer, Genital Herpes, Gonorrhea, Pelvic Inflammatory Disease, Syphilis or Uterine Prolapse MUSCULOSKELETAL: Positive Musculoskeletal Disorders, Arthritis, Rheumatoid Arthritis, Osteoporosis, Degenerative Disk Disease, Gout, Scoliosis, Carpal Tunnel Syndrome, Fibromyalgia and Fractures; Negative Muscular Dystrophy, Myasthenia Gravis, Marfan's Syndrome, Bone Cancer, Degenerative Joint Disease, Osteomyelitis or Poliovirus ENT: Negative Cataracts, Glaucoma, Blind, Retinal Detachment, Macular Degeneration, Ear Infection, Deafness, Head Trauma or Eye Prosthesis ENDOCRINE: Negative Endocrine Disorders, Diabetes Mellitus Type 1, Diabetes Mellitus Type 2, Hypoglycemia, Josh's Syndrome, [place]'s Disease, Hyperthyroidism, Hypothyroidism, Parathyroid Disease, Pituitary Disease, Systemic Lupus Erythematosus, Syndrome of Inappropriate Antidiuretic Hormone (SIADH), Adrenal Disease or Graves' Disease HEMATOLOGIC: Negative Blood Disorders, Anemia, Leukemia, Hemophilia, Thalassemia, Sickle Cell Disease or Clotting Problems PSYCHO/SOCIAL: Positive Bipolar Disorder, Depression, Anxiety and Post Traumatic Stress Disorder; Negative Psychiatric Problems, Schizophrenia, Recreational Drug Use, Behavior Problems, Self-Mutilation, Attention Deficit Disorder, Attention Deficit Hyperactivity Disorder, Depression or Eating Disorder OTHER HISTORY: Positive Hospitalization, Autoimmune Disease, Falls and Chicken Pox; Negative Down Syndrome, Autism, Developmental Delay, Shingles, Blood Transfusions, Blood Transfusion Reaction, Anesthesia Reactions, Organ Transplant, Chemotherapy, Radiation Therapy, Hyperbaric Therapy, MRSA, VRSA, Vancomycin-Resistant Enterococci, Human Immunodeficiency Virus (HIV), Measles, Mumps, Rubella (Cymro Measles), Pertussis, Clostridium Difficile, Cancer, Breast Cancer, Cervical Cancer, Colorectal Cancer, Lung Cancer or Ovarian Cancer Family History FAMILY HISTORY: Positive Family Psychiatric Problems, Family Respiratory Disorders, Family Cardiac Disorders, Family Cancer and Family Surgery; Negative Family Gastrointestinal Problems or Family Anesthesia Reaction Surgical History SURGICAL: Positive Thyroidectomy, Nose Surgery, Tonsillectomy, Abdominal Surgery, Bowel Surgery, Lumpectomy, Hysterectomy and Tubal Ligation; Negative Cardiac Surgery, Open Heart Surgery, Coronary Artery Bypass Graft, Valve Replacement, Vascular Surgery, Coronary Stent, Cardiac Catheterization, Pacemaker, Angiogram, Auto Implanted Cardiovert Defib, Carotid Endarterectomy, Endocrine Surgery, Ear Surgery, Tympanostomy Tube, Eye Surgery, Oral Surgery, Adenoidectomy, Cochlear Implant, Corneal Transplant, Throat Surgery, Tracheostomy, Gastric Bypass Surgery, Gastrostomy, Nephrectomy, Joint Replacement, Amputation, Open Reduction Internal Fixation, Arthroscopy, Neurologic Surgery, Brain Shunt, Section or Organ Transplant Social History SMOKING STATUS: Current every day smoker SECOND HAND EXPOSURE: Yes SUBSTANCE USE: does not use ED Exam Narrative Physical exam: [General: Anxious, tearful, but not in any distress Head normocephalic HEENT: Within acceptable limits Neck is supple nontender Chest equal chest rise nontender to palpation Respiratory: Wet nonproductive cough, bibasilar crackles. Tachypnea. CV: Rate rhythm is regular tachycardia no murmurs rubs or clicks Abdomen is soft nontender no masses positive bowel sounds all 4 quadrants Back: No CVA tenderness no spinous process tenderness from cervical spine thoracic and lumbar spine Skin: Intact no petechiae rash induration ulceration or crepitus Extremities: Moving all extremity against resistance cap refill less than 2 seconds neurosensory intact Neuro: Awake alert oriented x3 Glascow coma 15 no focal deficits] Course Course Course Narrative: Reassessment of this patient at 1855, the patient is resting comfortably not any acute distress oxygen saturations greater than 96% on a couple liters nasal cannula patient states she feels much better this time we will discharge her home on steroids. Patient is already taking antibiotics from her PCP although I am not sure that that is warranted at this time Quality Measures none Orders Category Date Time Status EKG (ED ONLY) *Do not use* NOW Care 04/08/25 15:27 Completed Saline [Insert IV] NOW Care 04/08/25 15:28 Completed EKG (ED Only) Stat Exams 04/08/25 15:27 Draft XR chest 1V Stat Exams 04/08/25 15:27 Completed B-Type Natriuretic Peptide Stat Lab 04/08/25 16:00 Completed CBC Stat Lab 04/08/25 16:00 Completed Comprehensive Metabolic Panel Stat Lab 04/08/25 16:00 Completed Drug Screen,Urine Stat Lab 04/08/25 16:24 Completed LDH (Lactate Dehydrogenase) Stat Lab 04/08/25 16:00 Completed Magnesium Stat Lab 04/08/25 16:00 Completed Partial Thromboplastin Time Stat Lab 04/08/25 16:00 Completed Prothrombin Time with INR Stat Lab 04/08/25 16:00 Completed Troponin I Stat Lab 04/08/25 16:00 Completed Urinalysis, C/S if Indicated Stat Lab 04/08/25 16:24 Completed ALBUTEROL RT 0.5ml [Proventil Rt 0.5ml] Med 04/08/25 16:02 Discontinued 10 mg INH X1 ONE Ketorolac Inj [Toradol Inj] Med 04/08/25 15:50 Discontinued 15 mg IVP X1 ONE LORazepam [Ativan Inj] Med 04/08/25 16:29 Discontinued 1 mg IVP X1 ONE MethylPREDNISolone.* [SoluMEDROL Inj] Med 04/08/25 15:28 Discontinued 125 mg IVP X1 ONE Prochlorperazine Inj [Compazine Inj] Med 04/08/25 15:50 Discontinued 5 mg IV X1 ONE Sodium Chloride Rt Nessa 0.9% [NS Rt Nessa 0.9%] Med 04/08/25 16:02 Discontinued 3 ml INH PRN PRN Sodium Cl Irrig Soln [NS Irrig] 240 ml Med 04/08/25 15:29 Discontinued ALBUTEROL RT 5 ml [Proventil Rt 5 ml] 80 mg INH NOW cefTRIAXone/D5w 1gm IV premix [Rocephin/D5w 1gm IV Med 04/08/25 15:28 Discontinued premix] 1 gm in 50 ml IV X1 Vital Signs Vital signs: Vital Signs Temperature 98.9 F 04/08/25 15:23 Pulse Rate 117 H 04/08/25 15:23 Respiratory Rate 22 H 04/08/25 15:23 Blood Pressure 130/94 H 04/08/25 15:23 Pulse Oximetry (%) 95 04/08/25 15:23 Oxygen Delivery Method Nasal Cannula 04/08/25 15:23 Oxygen Flow Rate 4 04/08/25 15:23 Discharge Plan Plan Patient Disposition: HOME (Self Care) Patient condition on transfer: Stable Prescriptions/Referrals Prescriptions/Med Rec: New prednisone 20 mg tablet See Taper PO BID 3 Days Qty: 6 0RF Taper: Prednisone Taper 20 mg DAILY for 2 Days and 0 Hour 10 mg DAILY for 2 Days and 0 Hour 5 mg DAILY for 7 Days and 0 Hour No Action quetiapine 300 mg tablet 200 mg PO HS folic acid 1 mg Tablet 1 mg PO HS lorazepam 1 mg Tablet 1 mg PO Q8H PRN (Reason: Anxiety) atorvastatin 10 mg Tablet 10 mg PO HS levothyroxine 75 mcg Tablet 50 mcg PO QMORNING methocarbamol 750 mg Tablet 750 mg PO BID pantoprazole 40 mg Tablet,Delayed Release (Dr/Ec) 40 mg PO QDAY metoprolol tartrate 50 mg tablet 100 mg PO BID leflunomide 20 mg tablet 20 mg PO QDAY Patient Comments: TAKE ONE TABLET BY MOUTH EVERY DAY RHEUMATOID ARTHRITIS fenofibrate 54 mg tablet 54 mg PO HS Patient Comments: TAKE ONE TABLET BY MOUTH EVERY DAY FOR CHOLESTEROL promethazine 25 mg Tablet 25 mg PO BID estradiol 2 mg tablet 2 mg PO HS Patient Comments: TAKE ONE TABLET BY MOUTH EVERY DAY rosuvastatin 20 mg tablet 20 mg PO HS Patient Comments: TAKE ONE TABLET BY MOUTH AT BEDTIME FOR CHOLESTEROL Referrals: Geovanni Eastman MD [Physician, Family Practice] - In 1 week No Primary/Family,Physician [Primary Care Provider] - In 1 week Problem List Clinical Impression: COPD exacerbation Patient/Caregiver Discharge Instructions Other Activity Instructions:: Take the medication as prescribed follow-up with your primary care doctor if there is worsening of symptoms return the emergency room for reevaluation. Education Materials: COPD: Chronic Coughing Print Language: Sami Stand Alone Forms: Lela Award Info., Patient Portal Info Letter MDM Clinical Information Provided by: patient and EMS Medical Records reviewed [facility] and EMS Meds/Rx considered, not ordered None Labs/Rad/Tests considered, not ordered None Chronic Illness/Social Conditions Explain: COPD, RA EKG Interpretation EKG #1: EKG Interpretation: EKG performed at 1538 shows a ventricular rate of 109 KS interval 142 QRS of 68 QTc of 394 sinus tachycardia. Labs Labs: interpreted by id Lab(s) Interpretation(s): CBC shows no acute leukocytosis anemia thrombocytopenia Coags within excepted limits CMP shows no significant electrolyte imbalances renal impairment transaminitis or T. bili elevation. Troponin and BNP is negative Urine is turbid but no signs of infection UDS positive for opiates. Imaging Imaging interpretation: interpreted by id Imaging Interpretation(s): No acute finding Medication Administration(s) Medication Administration History Discontinued Medications Albuterol (Albuterol Rt 2.5 Mg/0.5 Ml Nebu) 10 mg INH X1 ONE Stop: 04/08/25 16:03 Last Admin: 04/08/25 16:06 Dose: 10 mg Documented By: KATRIN Sodium Chloride 240 ml/ (Albuterol 80 mg) 0 ml INH NOW ONE Stop: 04/08/25 15:30 Last Admin: 04/08/25 16:03 Dose: Not Given Documented By: KATRIN Non-Admin Reason: wrong dosage reordered for 10ml Ceftriaxone Sodium/Dextrose (Rocephin/D5w 1gm Iv Premix) 1 gm in 50 mls @ 100 mls/hr IV X1 ONE Stop: 04/08/25 15:57 Last Infusion: 04/08/25 17:38 Dose: Infused Documented By: Admin: 04/08/25 16:09 Dose: 100 mls/hr Documented By: DO Ketorolac Tromethamine (Ketorolac Inj 30 Mg/Ml Vial) 15 mg IVP X1 ONE Stop: 04/08/25 15:51 Last Admin: 04/08/25 16:00 Dose: 15 mg Documented By: DO Lorazepam (Lorazepam 2 Mg/Ml Vial) 1 mg IVP X1 ONE Stop: 04/08/25 16:30 Last Admin: 04/08/25 17:36 Dose: 1 mg Documented By: DO Methylprednisolone Sodium Succinate (Methylprednisolone Sod Succ 62.5 Mg/Ml 2ml Vial) 125 mg IVP X1 ONE Stop: 04/08/25 15:29 Last Admin: 04/08/25 16:05 Dose: 125 mg Documented By: DO Prochlorperazine Edisylate (Prochlorperazine Inj 5 Mg/Ml Vial 2 Ml) 5 mg IV X1 ONE; Protocol Stop: 04/08/25 15:51 Last Admin: 04/08/25 16:02 Dose: 5 mg Documented By: DO Sodium Chloride (Sodium Chloride Rt Nessa 0.9% 3 Ml Nebu) 3 ml INH PRN PRN PRN Reason: SOLN Stop: 05/08/25 16:01
[2025-04-08] MEDS: KETOROLAC INJ 30 MG/ML VIAL 15 MG IVP (16:00)
[2025-04-08] MEDS: PROCHLORPERAZINE INJ 5 MG/ML VIAL 2 ML IV (16:02)
[2025-04-08] MEDS: MethylPREDNISolone SOD SUCC 62.5 MG/ML 2ML VIAL 125 MG IVP (16:05)
[2025-04-08 16:06] VITALS: PULSE 95
[2025-04-08] MEDS: ALBUTEROL RT 2.5 MG/0.5 ML NEBU 10 MG INH (16:06)
[2025-04-08 16:08] VITALS: PULSE 106; RESP 18; O2SAT 98
[2025-04-08] MEDS: cefTRIAXone/D5w 1gm IV premix 1 GM/50 ML BAG IV (16:09)
[2025-04-08 16:20] LABS: Basophils # (Auto) 0.1 Thou/mm3 (0.0-0.2); Basophils % (Auto) 1 % (0-2.5); Eosinophils # (Auto) 0.3 Thou/mm3 (0.0-0.5); Eosinophils % (Auto) 3 % (0-10); Hematocrit 50.0 % (36.0-46.0); Hemoglobin 16.0 g/dL (12.0-16.0); Immature Granulocytes Auto 0.05 Thou/mm3 (0.00-0.00); Lymphocytes # (Auto) 2.7 Thou/mm3 (1.0-4.8); Lymphocytes % (Auto) 29 % (10-50); Mean Corpuscular HGB Conc 32.0 g/dl (31.0-37.0); Mean Corpuscular Hemoglobin 30.2 pg (25.0-35.0); Mean Corpuscular Volume 95 fL (80-100); Monocytes # (Auto) 0.6 Thou/mm3 (0.0-0.8); Monocytes % (Auto) 7 % (0-12); Neutrophils # (Auto) 5.5 Thou/mm3 (1.8-7.7); Neutrophils % (Auto) 60 % (37-80); Nucleated Red Blood Cell # 0.00 Thou/mm3 (0.00-0.00); Nucleated Red Blood Cell % 0 /100 WBC (0); Platelet Count 204 Thou/mm3 (140-440); RDW Standard Deviation 45.8 fL (36.4-46.3); Red Blood Count 5.29 Miln/mm3 (4.00-5.20); White Blood Count 9.2 Thou/mm3 (3.6-11.0)
[2025-04-08 16:36] LABS: Collection Type, Urine Clean Catch; Squamous Epithelial Cell,Urine 0 /hpf (0-5); WBC,Urine 0 /hpf (0-5)
[2025-04-08 16:39] LABS: B-Type Natriuretic Peptide 23 pg/mL (0-100)
[2025-04-08 16:40] LABS: Alanine Aminotransferase 11 U/L (10-49); Albumin, Serum 5.0 gm/dL (3.5-5.0); Albumin/Globulin Ratio 2.0 (1.2-2.2); Alkaline Phosphatase 77 U/L (46-116); Anion Gap 8 (7-16); Aspartate Amino Transferase 28 U/L (0-34); BUN/Creatinine Ratio 10 Ratio (12-20); Bilirubin,Total 0.4 mg/dL (0.3-1.2); Blood Urea Nitrogen < 5 mg/dL (9-23); Calcium 9.8 mg/dL (8.3-10.6); Calcium (Corrected) 9.8 mg/dL (8.5-10.1); Carbon Dioxide 32.7 mMol/L (20.0-31.0); Chloride 103 mMol/L (98-107); Creatinine (Component) 0.5 mg/dL (0.6-1.3); Estimated Creatinine Clearance 125.4 mL/min (>60); Globulin 2.5 gm/dL (2.3-3.5); Glucose 129 mg/dL (74-106); INR 1.2 (0.9-1.3); LDH (Lactate Dehydrogenase) 240 U/L (120-246); Magnesium 1.6 mg/dL (1.6-2.6); Osmolality,Calculated 286 (275-295); Partial Thromboplastin Time 28.2 Seconds (22.0-36.0); Potassium 3.8 mMol/L (3.4-5.1); Prothrombin Time 12.7 Seconds (9.0-12.2); Sodium 144 mMol/L (136-145); Total Protein 7.5 gm/dL (5.7-8.2); Troponin I < 0.002 ng/mL (0.0-0.045); eGFR > 60 See Note
[2025-04-08 16:44] LABS: Bilirubin,Urine Negative (Negative); Blood,Urine Negative (Negative); Clarity,Urine Turbid (Clear/Hazy); Color,Urine Lt-Yellow (Lt Yel-Yel); Culture Indicated,Urine Not Indicated; Glucose, Urine Negative (Negative); Ketones,Urine Negative (Negative); Leukocyte Esterase,Urine Negative (Negative); Nitrite,Urine Negative (Negative); PH,Urine 7.0 (5.0-7.0); Protein,Urine Negative (Neg - Trace); RBC,Urine < 1 /hpf (0-3); Specific Gravity,Urine 1.007 (1.001-1.035); Urobilinogen,Urine Negative mg/dL (0.0-1.0)
[2025-04-08 16:48] LABS: Amphetamine/Methamp Scrn,U Negative (Negative); Barbiturate Screen,Urine Negative (Negative); Benzodiazepines Screen,Urine Negative (Negative); Benzoylecgonine Screen, Ur Negative (Negative); Fentanyl Screen,Urine Negative (Negative); Opiate Screen,Urine Positive (Negative); THC Screen,Urine Negative (Negative)
[2025-04-08] MEDS: LORazepam 2 MG/ML VIAL 1 MG IVP (17:36)
[2025-04-08 17:38] VITALS: BP 124/97; PULSE 101; RESP 18; TEMP 36.4; O2SAT 95
[2025-04-08 19:00] VITALS: BP 120/91; PULSE 102; RESP 17; TEMP 37; O2SAT 95
== END 2025-04-08 19:13 | disposition home or self-care (01) ==
PROVIDERS: Registered Nurse General Practice; Emergency Provider Emergency Medicine
DX: J44.1 Chronic obstructive pulmonary disease with (acute) exacerbation (principal); R00.0 Tachycardia, unspecified; F17.210 Nicotine dependence, cigarettes, uncomplicated; E78.00 Pure hypercholesterolemia, unspecified; I10 Essential (primary) hypertension
CPT/HCPCS: 36415; 71045; 80053; 80307; 81001; 83615; 83735; 83880; 84484; 85025; 85610; 85730; 93005; 94644; 96365; 96375; 99285; J0696; J0780; J1885; J2060; J2919; J7611